=== PATIENT | female | born 1960 | race Caucasian/White ===

== ENCOUNTER 2021-05-29 10:46 | Inpatient (IN) ==
[2021-05-29] MEDS ORDERED: MoRPHine SULFATE 4 MG/ML 1 ML CARP\\VIAL IV STA ×3 (14:06→20:53)
[2021-05-29] MEDS ORDERED: SODIUM CHLORIDE 0.9% 500 ML IV STA (14:06)
[2021-05-29] MEDS ORDERED: ONDANSETRON INJ 2 MG/ML 2 ML VIAL IV STA (14:06)
--- NOTE | 2021-05-29 14:11 | Emergency Department Note ---
Impression & Plan Acute pancreatitis, Cholelithiasis, Elevated LFTs ED Provider Note CHIEF COMPLAINT: Abdominal pain, nausea and vomiting HISTORY OF PRESENTING ILLNESS: This is a 61-year-old female who presents to the emergency department by private vehicle with complaint of right-sided abdominal pain that started this morning. Patient states that she has had a lot of nausea and vomiting with the pain and has not been able to keep anything down today. Patient states that she had some upper abdominal pain about 9 days ago, she went to another hospital in [place] and was evaluated for this, she states that they did scans and told her that she had a hiatal hernia. She states that her symptoms completely resolved at that time and she has been feeling fine until this morning when her symptoms came back suddenly. She states the pain is in the right side of her upper abdomen, wraps around to her right shoulder blade area and also radiates down towards her lower abdomen, it is constant, dull ache and occasional sharp pains, and she currently rates the pain 9/10. She has not been able to take anything for pain because of the nausea and vomiting. She denies any history of previous abdominal surgeries or intestinal problems. She does note that they had encouraged her to follow-up with GI and she has an appointment towards the end of the month, she states she called GI today with her symptoms but they were not able to get her in any sooner today and recommended she come to the ER for further evaluation. She denies any chest pain, chest tightness, shortness of breath, palpitations, dizziness or syncope. She does note that she is currently on Eliquis for history of a right lower leg DVT. She denies any diarrhea or constipation and denies any urinary symptoms. REVIEW OF SYSTEMS: A complete 10 point review of systems was reviewed with the patient with pertinent positives and negatives as per history of present illness. All else were negative. PAST MEDICAL HISTORY: History of DVT currently on Eliquis SOCIAL HISTORY: Lives at home, she is a current everyday smoker ALLERGIES: No known allergies PHYSICAL EXAM: CONSTITUTIONAL: Pleasant and cooperative. Nontoxic-appearing and in no acute distress, but appears to feel unwell and to be in some pain, grimacing during exam. Mildly dehydrated. HEENT: Normocephalic, atraumatic. Pharynx normal. Tacky mucous membranes. NECK: Supple, full active range of motion without discomfort. RESPIRATORY: Clear to auscultation bilaterally with no wheezing, crackles, rhonchi or stridor. Equal expansion bilaterally. CARDIOVASCULAR: Regular rate and rhythm with no murmurs, rubs or gallops. Normal peripheral perfusion, 2+ distal pulses in all 4 extremities. No pitting edema. GASTROINTESTINAL: Tender to palpation in the right upper quadrant, right lower quadrant, and right flank, slight guarding throughout. No rebound tenderness. Abdomen is soft and nondistended. No palpable masses or HSM. Bowel sounds present in all quadrants. Right-sided CVA tenderness to percussion, no left- sided CVA tenderness. MUSCULOSKELETAL: Full range of motion of all joints without discomfort. INTEGUMENTARY: No rash or other significant dermatologic conditions noted. NEUROLOGIC: Alert and oriented X 4 with normal affect. Normal strength and sensation in all 4 extremities. Normal speech. Normal gait observed. ED COURSE AND MEDICAL DECISION MAKING: CC: Patient presenting with complaint of abdominal pain, nausea and vomiting DIFFERENTIAL DIAGNOSIS: Includes, but not limited to cholecystitis, cholelithiasis, pancreatitis, appendicitis, ovarian cyst, ovarian torsion, UTI, pyelonephritis, ureteral stone, infections, diverticulitis, small bowel obstruction, aortic pathology, acute coronary syndrome, pulmonary embolism, inflammatory bowel disease, PUD, hernia, volvulus, constipation, as well as other pathologies. INTERPRETATION OF LABS: Leukocytosis, no anemia, normal platelets, no significant electrolyte abnormalities, normal renal function, diffusely elevated liver enzymes and elevated lipase. Troponin undetectable. SARS-CoV-2 PCR negative. EKG: Shows normal sinus rhythm with a rate of 84 bpm, no ST elevation or depression, no ectopy by my interpretation. No previous EKGs available for comparison. MEDICATION RECONCILIATION: I attest that I have personally reviewed the patient's current medication list. INITIAL VITAL SIGNS REVIEW: I reviewed the patient's initial vital signs and interpret them as follows: T: Afebrile; BP: Mildly hypertensive; HR: Within normal limits; RR: Within normal limits; Pulse Ox: Within normal limits on room air. MDM SUMMARY: Patient was evaluated at bedside, history and physical exam performed. Patient is alert and oriented, in no acute distress, but does appear to be in some pain on my exam. She is nauseated but is not actively vomiting. She does appear to be mildly dehydrated clinically. Abdomen is quite tender to palpation throughout the right side, most tender in the right upper quadrant, no acute abdomen. She is afebrile and nontoxic-appearing. Cardiac monitoring: An order was placed for continuous cardiac monitoring. The monitor shows a rate of 80 bpm with normal sinus rhythm. EKG was reviewed and showed normal sinus rhythm with no acute ischemic changes. Orders were placed for labs, UA, IV fluid bolus for hydration, IV morphine for pain, IV Zofran for nausea, CT imaging of the abdomen/pelvis with IV contrast to evaluate for right abdominal and flank pain. Patient notes a recent DVT, a CTA of the chest was added as well as a precaution. Patient's labs were reviewed, notable for leukocytosis as well as significantly elevated liver enzymes and lipase. Given the patient's history and exam with these lab findings, I am most concerned for gallbladder disease/pancreatitis. CT imaging was canceled and a right upper quadrant ultrasound was ordered at this time. Patient discussed with Dr. Reid, who agrees with my assessment, plan, and disposition. Right upper quadrant ultrasound noted cholelithiasis without sonographic evidence of acute cholecystitis. She was given additional IV fluid bolus and additional morphine for continued pain management. I spoke on the phone with Mauri Maher PA-C with General surgery, he recommended the patient be evaluated by GI and most likely admitted to medicine. I spoke on the phone with [facility] and the [facility] hospitalist, they have evaluated the patient for admission and GI plans to take the patient for ERCP tomorrow. IV Zosyn was ordered at the recommendation of GI given the patient's leukocytosis. Patient reassessed multiple times throughout ED stay, she has remained hemodynamically stable and afebrile and notes that her pain and nausea are improved after the morphine and Zofran. The patient was updated on all results and plan for admission, all questions were answered to the best of my ability and the patient was agreeable to this plan. The patient was stable at time of admission. The chart was completed utilizing [employer] Speech voice recognition software. Grammatical errors, random word insertions, pronoun errors, and incomplete sentences are an occasional consequence of this system due to software limitations, ambient noise, and hardware issues. Any formal questions or concerns about the content, text, or information contained within the body of this dictation should be directly addressed to the nurse practitioner for clarification. Past Med/Surg History Social History Smoking Status: Current every day smoker Tobacco Type: Cigarettes Cigarettes Per Day: 15; Hx Alcohol Use: No Hx Substance Use: No Preferred Language: Togolese Communication Ability: Effective Pit Recorder Required: No Beliefs That Will Affect Care: None Current Living Situation: Spouse Feels Safe at Home: Yes Assistive Devices: Glasses Allergies Allergies Allergy/AdvReac Type Severity Reaction Status Date / Time No Known Allergies Allergy Unverified 05/29/21 16:33 Home Meds Home Medications Medication Instructions Recorded Confirmed apixaban 5 mg tablet (Eliquis) 5 mg PO BID 05/29/21 05/29/21 ascorbic acid (vitamin C) 500 mg 0 mg PO QAM 05/29/21 05/29/21 tablet (Vitamin C) cholecalciferol (vitamin D3) 25 0 mcg PO QAM 05/29/21 05/29/21 mcg (1,000 unit) tablet (Vitamin D3) zinc 50 mg tablet 0 mg PO QAM 05/29/21 05/29/21 Results & Data (ED) Vital Signs Vital Signs - 24 hr 05/29/21 11:03 05/29/21 14:20 05/29/21 14:24 Temperature 36.6 C Temperature Source Temporal Artery Scan Pulse Rate 78 Pulse Rate [Left Finger] 92 H Pulse Rhythm Regular Pulse Rhythm [Left Finger] Regular Pulse Strength Normal Pulse Strength [Left Finger] Normal Respiratory Rate 20 20 Respiratory Effort / Characteristics Non-Labored Spontaneous Non-Labored Spontaneous Respiratory Depth Normal Normal Respiratory Pattern Regular Blood Pressure 143/78 H Blood Pressure [Left Arm] 145/87 H Blood Pressure Mean 99 Blood Pressure Mean [Left Arm] 106 Blood Pressure Position [Left Arm] Sitting Pulse Oximetry 100 99 99 Oxygen Delivery Method Room Air Room Air Room Air Oxygen Flow Rate Sepsis Recent Fever Within 48 Hours No Sepsis New/Unexplained Change in Mental Status No Sepsis Action Taken by Nursing No Action Required 05/29/21 16:20 Temperature Temperature Source Pulse Rate Pulse Rate [Left Finger] 80 Pulse Rhythm Pulse Rhythm [Left Finger] Regular Pulse Strength Pulse Strength [Left Finger] Normal Respiratory Rate 18 Respiratory Effort / Characteristics Non-Labored Spontaneous Respiratory Depth Normal Respiratory Pattern Regular Blood Pressure Blood Pressure [Left Arm] 104/76 Blood Pressure Mean Blood Pressure Mean [Left Arm] 85 Blood Pressure Position [Left Arm] Pulse Oximetry 99 Oxygen Delivery Method Nasal Cannula Oxygen Flow Rate 2 Sepsis Recent Fever Within 48 Hours Sepsis New/Unexplained Change in Mental Status Sepsis Action Taken by Nursing Laboratory Data Result diagrams: 05/29/21 14:00 05/29/21 14:00 Lab Results 05/29/21 05/29/21 05/29/21 Range/Units 14:00 14:00 14:00 WBC 17.55 H (4.8-10.8) K/uL RBC 5.05 (4.2-5.4) M/uL Hgb 15.6 (12.0-16.0) g/dL Hct 45.7 (37-47) % MCV 90.5 (80-100) fL MCH 30.9 (25-34) pg MCHC 34.1 (32-36) g/dL RDW Std Deviation 45.8 (36.4-46.3) fL RDW Coeff of Phillip 14.0 (11.5-14.5) % Plt Count 338 (130-400) K/uL MPV 10.4 (7.4-10.4) fL Immature Gran % (Auto) 0.2 % Neut % (Auto) 91.2 % Lymph % (Auto) 8.5 % Steele % (Auto) 0.0 % Eos % (Auto) 0.0 % Baso % (Auto) 0.1 % Neut # (Auto) 16.02 H (1.4-6.5) K/uL Lymph # (Auto) 1.49 (1.2-3.4) K/uL Steele # (Auto) 0.00 L (0.11-0.59) K/uL Eos # (Auto) 0.00 (0-0.5) K/uL Baso # (Auto) 0.01 (0-0.2) K/uL Immature Gran # (Auto) 0.03 H (0.00-0.02) K/uL Sodium 138 (136-145) mmol/L Potassium 3.6 (3.5-5.1) mmol/L Chloride 106 (98-107) mmol/L Carbon Dioxide 23 (21-32) mmol/L Anion Gap 9.0 (3-11) BUN 12 (7-18) mg/dl Creatinine 0.87 (0.6-1.2) mg/dl Est Cr Clr Drug Dosing Not Reportable Est GFR ( Amer) 82.8 ml/min Est GFR (Non-Af Amer) 71.4 ml/min BUN/Creatinine Ratio 13.6 (10-20) Glucose 197 H (70-99) mg/dl Calcium 9.5 (8.5-10.1) mg/dl Total Bilirubin 1.9 H (0.2-1) mg/dl AST 307 H (15-37) U/L ALT 314 H (12-78) U/L Alkaline Phosphatase 283 H (45-117) U/L Troponin I < 0.015 (0-0.045) ng/ml Total Protein 7.9 (6.4-8.2) gm/dl Albumin 3.9 (3.4-5.0) gm/dl Globulin 4.0 (2.5-4.0) gm/dl Albumin/Globulin Ratio 1.0 (0.9-2) Lipase 5795 H (73-393) U/L COVID-19 Eval Order SARS-CoV-2 (PCR) (Negative) 05/29/21 05/29/21 Range/Units 16:18 16:18 WBC (4.8-10.8) K/uL RBC (4.2-5.4) M/uL Hgb (12.0-16.0) g/dL Hct (37-47) % MCV (80-100) fL MCH (25-34) pg MCHC (32-36) g/dL RDW Std Deviation (36.4-46.3) fL RDW Coeff of Phillip (11.5-14.5) % Plt Count (130-400) K/uL MPV (7.4-10.4) fL Immature Gran % (Auto) % Neut % (Auto) % Lymph % (Auto) % Steele % (Auto) % Eos % (Auto) % Baso % (Auto) % Neut # (Auto) (1.4-6.5) K/uL Lymph # (Auto) (1.2-3.4) K/uL Steele # (Auto) (0.11-0.59) K/uL Eos # (Auto) (0-0.5) K/uL Baso # (Auto) (0-0.2) K/uL Immature Gran # (Auto) (0.00-0.02) K/uL Sodium (136-145) mmol/L Potassium (3.5-5.1) mmol/L Chloride (98-107) mmol/L Carbon Dioxide (21-32) mmol/L Anion Gap (3-11) BUN (7-18) mg/dl Creatinine (0.6-1.2) mg/dl Est Cr Clr Drug Dosing Est GFR ( Amer) ml/min Est GFR (Non-Af Amer) ml/min BUN/Creatinine Ratio (10-20) Glucose (70-99) mg/dl Calcium (8.5-10.1) mg/dl Total Bilirubin (0.2-1) mg/dl AST (15-37) U/L ALT (12-78) U/L Alkaline Phosphatase (45-117) U/L Troponin I (0-0.045) ng/ml Total Protein (6.4-8.2) gm/dl Albumin (3.4-5.0) gm/dl Globulin (2.5-4.0) gm/dl Albumin/Globulin Ratio (0.9-2) Lipase (73-393) U/L COVID-19 Eval Order Covid19 at [facility] SARS-CoV-2 (PCR) NEGATIVE (Negative) Administered Medications Lactated Ringer's (Lr) 1,000 mls @ 150 mls/hr IV .Q6H40M JOSE Stop: 06/28/21 20:23 Last Admin: 05/29/21 21:06 Dose: 150 mls/hr Documented by: [id number] Ondansetron HCl (Ondansetron Inj 2 Mg/Ml 2 Ml Vial) 4 mg IV Q6H PRN PRN Reason: Nausea And Vomiting Stop: 06/28/21 20:52 Last Admin: 05/29/21 21:08 Dose: 4 mg Documented by: [id number] Discontinued Medications Sodium Chloride (Nss) 500 mls @ 999 mls/hr IV .Q31M STA Stop: 05/29/21 14:36 Last Infusion: 05/29/21 15:10 Dose: 0 mls/hr Documented by: [id number] Admin: 05/29/21 14:18 Dose: 999 mls/hr Documented by: [id number] Sodium Chloride (Nss 1000ml) 1,000 mls @ 999 mls/hr IV .Q1H1M ONE Stop: 05/29/21 17:11 Last Infusion: 05/29/21 17:35 Dose: 0 mls/hr Documented by: [id number] Admin: 05/29/21 16:23 Dose: 999 mls/hr Documented by: [id number] Piperacillin Sod/Tazobactam Sod (Zosyn) 4.5 gm in 120 mls @ 240 mls/hr IV NOW ONE Stop: 05/29/21 17:13 Last Infusion: 05/29/21 17:35 Dose: 0 mls/hr Documented by: [id number] Admin: 05/29/21 16:48 Dose: 240 mls/hr Documented by: [id number] Morphine Sulfate (Morphine Sulfate 4 Mg/Ml 1 Ml Carp\Vial) 4 mg IV NOW STA Stop: 05/29/21 14:07 Last Admin: 05/29/21 14:18 Dose: 4 mg Documented by: [id number] Morphine Sulfate (Morphine Sulfate 4 Mg/Ml 1 Ml Carp\Vial) 4 mg IV NOW STA Stop: 05/29/21 16:22 Last Admin: 05/29/21 16:48 Dose: 4 mg Documented by: [id number] Morphine Sulfate (Morphine Sulfate 4 Mg/Ml 1 Ml Carp\Vial) 4 mg IV NOW STA Stop: 05/29/21 20:54 Last Admin: 05/29/21 21:09 Dose: 4 mg Documented by: [id number] Ondansetron HCl (Ondansetron Inj 2 Mg/Ml 2 Ml Vial) 4 mg IV NOW STA Stop: 05/29/21 14:07 Last Admin: 05/29/21 14:18 Dose: 4 mg Documented by: [id number] Imaging Data Radiologist's Impression: Gallbladder Ultrasound 05/29/21 14:45 US gallbladder HISTORY: 61 years-old Female RUQ pain, elevated liver enzymes acute right upper quadrant abdominal pain COMPARISON: None TECHNIQUE: Multiple real-time sonographic images of the abdominal right upper quadrant were obtained assessing grayscale appearance and color flow FINDINGS: The visualized pancreas is unremarkable. Increased echogenicity of the liver suggestive of hepatic steatosis with fatty sparing near the dylan hepatis. No hepatic mass or marginal nodularity. Stone filled gallbladder with posterior acoustic shadowing. No gallbladder wall thickening or pericholecystic fluid identified. The sonographic Alvarado sign was reported as negative. The imaged right kidney is unremarkable without hydronephrosis. The common bile duct measures the upper limits of normal at 6 mm. IMPRESSION: 1. Cholelithiasis without sonographic evidence of acute cholecystitis. 2. Hepatic steatosis. ACT 112: Negative or not required by law. The above report was generated using voice recognition software. It may contain grammatical, syntax or spelling errors. Electronically signed by: Oswald Coppola M.D. 05/29/2021 3:31 PM Chest X-Ray 05/29/21 16:28 XR chest 1V portable HISTORY: sepsis COMPARISON: None. FINDINGS: No pneumothorax. No pleural effusions. There is mild elevation of the right hemidiaphragm. Right basilar linear densities favor subsegmental atelectasis. Otherwise, no focal lung consolidations to suggest pneumonia. No evidence for pulmonary edema. The heart is normal in size. Postoperative changes noted within the cervical spine. IMPRESSION: No acute process. ACT 112: Negative or not required by law. Electronically signed by: Alejo Gilmore M.D. 05/29/2021 5:05 PM Discharge Plan Visit Data Chief Complaint: GI Assessment Stated Complaint: ANAL HERNIA, THROWING UP, REFERRED BY DOCTOR ED Provider: Kodak Reid ED Midlevel Provider: Deana Jasmine Discharge Problem: Acute pancreatitis, Cholelithiasis, Elevated LFTs Patient Disposition: Admitted As Inpatient Condition: Good Discharge Instructions Interventions: ED Discharge Assessment Last Done: 05/29/21 19:58 Discharge Problem: Acute pancreatitis Qualifiers: Pancreatitis type: biliary Acute pancreatitis complication: unspecified Qualified Code(s): K85.10 - Biliary acute pancreatitis without necrosis or infection Cholelithiasis Qualifiers: Cholelithiasis location: gallbladder Cholecystitis presence: without cholecystitis Biliary obstruction: with biliary obstruction Qualified Code(s): K80.21 - Calculus of gallbladder without cholecystitis with obstruction
[2021-05-29 14:12] LABS: Basophils # (auto) 0.01 K/uL (0-0.2); Basophils % (auto) 0.1 %; Hematocrit (blood only) 45.7 % (37-47); Hemoglobin 15.6 g/dL (12.0-16.0); Immature Granulocytes # (auto) 0.03 K/uL (0.00-0.02); Immature Granulocytes % (auto) 0.2 %; Lymphocytes # (auto) 1.49 K/uL (1.2-3.4); Lymphocytes % (auto) 8.5 %; Mean Corpuscular Hemoglobin 30.9 pg (25-34); Mean Corpuscular Hgb Conc 34.1 g/dL (32-36); Mean Corpuscular Volume 90.5 fL (80-100); Mean Platelet Volume 10.4 fL (7.4-10.4); Neutrophils # (auto) 16.02 K/uL (1.4-6.5); Neutrophils % (auto) 91.2 %; Platelet Count 338 K/uL (130-400); RDW Standard Deviation 45.8 fL (36.4-46.3); Red Blood Count 5.05 M/uL (4.2-5.4); White Blood Count 17.55 K/uL (4.8-10.8)
[2021-05-29 14:29] LABS: Alanine Aminotransferase 314 U/L (12-78); Albumin Level 3.9 gm/dl (3.4-5.0); Aspartate Aminotransferase 307 U/L (15-37); BUN Creatinine Ratio 13.6 (10-20); Blood Urea Nitrogen 12 mg/dl (7-18); Calcium 9.5 mg/dl (8.5-10.1); Carbon Dioxide 23 mmol/L (21-32); Chloride 106 mmol/L (98-107); Est GFR (African American) 82.8 ml/min; Est GFR (Non-African American) 71.4 ml/min; Glucose 197 mg/dl (70-99); Potassium 3.6 mmol/L (3.5-5.1); Sodium 138 mmol/L (136-145)
[2021-05-29 14:32] LABS: Alkaline Phosphatase 283 U/L (45-117); Bilirubin,Total 1.9 mg/dl (0.2-1); Total Protein 7.9 gm/dl (6.4-8.2)
[2021-05-29 14:47] LABS: Lipase 5795 U/L (73-393)
--- NOTE | 2021-05-29 15:32 | Ultrasound Report ---
US gallbladder HISTORY: 61 years-old Female RUQ pain, elevated liver enzymes acute right upper quadrant abdominal p ain COMPARISON: None TECHNIQUE: Multiple real-time sonographic images of the abdominal right upper quadrant were obtained assessing grayscale appearance and color flow FINDINGS: The visualized pancreas is unremarkable. Increased echogenicity of the liver suggestive of hepatic st eatosis with fatty sparing near the dylan hepatis. No hepatic mass or marginal nodularity. Stone fill ed gallbladder with posterior acoustic shadowing. No gallbladder wall thickening or pericholecystic f luid identified. The sonographic Alvarado sign was reported as negative. The imaged right kidney is unr emarkable without hydronephrosis. The common bile duct measures the upper limits of normal at 6 mm. IMPRESSION: 1. Cholelithiasis without sonographic evidence of acute cholecystitis. 2. Hepatic steatosis. ACT 112: Negative or not required by law. The above report was generated using voice recognition software. It may contain grammatical, syntax o r spelling errors. Electronically signed by: Oswald Coppola M.D. 05/29/2021 3:31 PM
[2021-05-29] MEDS ORDERED: SODIUM CHLORIDE 0.9% 1000ML 1,000 ML IV ONE (16:11)
--- NOTE | 2021-05-29 16:13 | Surgery Consultation ---
Date of Consultation May 29, 2021 Assessment & Plan (1) Cholelithiasis: Likely biliary pancreatitis. Await GI decision for MRCP/ERCP. Hold Eliquis, cont IV abx. Eventual lap mariah once pancreatitis resolves and Eliquis held 2-3 days. Supervising Physician Co-Signing Physician Notes pnt S&E, agree with above. 61 y/o female with choledocholithiasis and gallstone pancreatitis, on elliquis. afvss, nad, aaox3, abd with tenderness to palpation in epigastrium and ruq. jaundiced. wbc elevated, lfts, tbili, and lipase elevated. admit to medicine, npo, ivf's, abx, hold elliquis gi consult for possible ercp plan for laparoscopic cholecystectomy this hospital stay, possibly tomorrow in conjunction with GI ERCP risks discussed to include bleeding, infection, retained stone, bile leak, damage to surrounding structures, need for future or more extensive surgery, open surgery, and risks of anesthesia. History of Present Illness History of Present Illness 61 y/o female with second episode of epigastric/RUQ pain, N/V over the 9 days. Was seen at another facility in [place] and told she had a hiatal hernia. Next day she she felt better, had symptoms again two days later but not as severe. Then felt well for several days until this morning when she increasing pain, N/V, and right shoulder pain. She had an upcoming appt with GI on the and they referred her to the ER for further eval today. LE DVT 5 months ago, due to finish Eliquis in early Jun. Allergies Allergy/AdvReac Type Severity Reaction Status Date / Time No Known Allergies Allergy Unverified 05/29/21 16:33 Home Medications Medication Instructions Recorded Confirmed Type apixaban 5 mg tablet (Eliquis) 5 mg PO BID 05/29/21 05/29/21 History ascorbic acid (vitamin C) 500 mg 0 mg PO QAM 05/29/21 05/29/21 History tablet (Vitamin C) cholecalciferol (vitamin D3) 25 0 mcg PO QAM 05/29/21 05/29/21 History mcg (1,000 unit) tablet (Vitamin D3) zinc 50 mg tablet 0 mg PO QAM 05/29/21 05/29/21 History Patient History Social History Smoking Status: Current every day smoker Tobacco Type: Cigarettes Feels Safe at Home: Yes Review of Systems Constitutional: no fever, no chills and no anorexia Gastrointestinal: + abdominal pain, + nausea and + vomiting; no constipation and no diarrhea/loose stools Physical Exam Constitutional: WD/WN, vitals as above Respiratory: normal respiratory effort, lungs clear to auscultation Cardiovascular: RRR, no murmur, no edema Gastrointestinal (Abdomen): Inspection/Auscultation: abdomen normal to inspection Percussion/Palpation: + abdomen tender (epigastric) and abdomen soft Skin: no rashes, warm and dry Results & Data ([facility]) Vital Signs (Past 12 Hours) Vital Signs Temp Pulse Pulse Resp BP BP Pulse Ox 05/29/21 14:24 99 05/29/21 14:20 92 H 20 145/87 H 99 05/29/21 11:03 36.6 C 78 20 143/78 H 100 PG Care Time/CCT Total # of Minutes Spent Total Time Spent with Patient: Total time spent is greater than 50% in coordination of care (as documented) at patient's floor/unit and/or counseling patient: Coding Level of Care Code 27321 Inpt Consult Level 3 Diagnoses Cholelithiasis K80.20
--- NOTE | 2021-05-29 16:23 | Electrocardiogram Report ---
Test Reason : Blood Pressure : / mmHG Vent. Rate : 084 BPM Atrial Rate : 084 BPM P-R Int : 156 ms QRS Dur : 090 ms QT Int : 350 ms P-R-T Axes : 064 019 077 degrees QTc Int : 413 ms Normal sinus rhythm Nonspecific T wave abnormality Abnormal ECG No previous ECGs available Confirmed by William Cleaning ([id number]) on 05/29/2021 4:23:05 PM Referred By: REFERRED SELF Confirmed By:William Cleaning
[2021-05-29] MEDS ORDERED: PIPERACILL/TAZOBAC CONSULT ACTIVE PRN (16:44)
[2021-05-29] MEDS ORDERED: PIPERACILLIN/TAZOBACTAM 4.5 GM/120 ML BAG IV ONE (16:44)
--- NOTE | 2021-05-29 16:51 | Gastrointestinal Consultation ---
Date of Consultation May 29, 2021 Assessment & Plan (1) Cholelithiasis: 61 year old female admitted w/ pain, nausea, vomiting ABD US w/ gallstones, no biliary dilation. WBC 17, TB 1.9 AST 307, ALT 314, ALKP 283 Hold Eliquis NPO after midnight EUS/ERCP in the AM IV ABX Antiemetics PRN Analgesia PRN Thank you for allowing us to participate in the care of this patient. Please call with any acute changes, questions or concerns. Please see addendum below with additional recommendation from my supervising physician. Supervising Physician Co-Signing Physician Notes I performed a history and physical examination of the patient today, including specifically on physical exam - soft abdomen. I have discussed the patient's management with the advanced practitioner. Please refer to the nurse practitioner's note for the documented findings and plan of care. 61 years old female patient presented with abdominal pain, nausea and vomiting, found to have gallstones pancreatitis, reports chills and has mild leukocytosis, no biliary dilation on US. She takes Eliquis, last dose was last night. Recommend: EUS/ERCP tomorrow morning, combination with Lap mariah. IV ABx for now. IV Hydration. Hold Eliquis. History of Present Illness Reason for Consultation: gallstone panc Requesting Physician: Melodie Attending Physician: Melodie History of Present Illness 61 year old female with history of DVT in December, last dose last evening as vomited dose this AM, COVID-19 infection in March admitted w/ pain nausea, vomiting x 1 week. Went to ED in [place], was told she had hiatal hernia. [place] well for 1-2 days then symptoms returned and persisted. Now w/ severe abd pain, nausea, vomiting. ABD US: Cholelithiasis without sonographic evidence of acute cholecystitis.Hepatic steatosis. Allergies Allergy/AdvReac Type Severity Reaction Status Date / Time No Known Allergies Allergy Unverified 05/29/21 16:33 Home Medications Medication Instructions Recorded Confirmed Type apixaban 5 mg tablet (Eliquis) 5 mg PO BID 05/29/21 05/29/21 History ascorbic acid (vitamin C) 500 mg 0 mg PO QAM 05/29/21 05/29/21 History tablet (Vitamin C) cholecalciferol (vitamin D3) 25 0 mcg PO QAM 05/29/21 05/29/21 History mcg (1,000 unit) tablet (Vitamin D3) zinc 50 mg tablet 0 mg PO QAM 05/29/21 05/29/21 History Patient History Social History Smoking Status: Current every day smoker Tobacco Type: Cigarettes Feels Safe at Home: Yes Review of Systems Review of Systems: All systems reviewed & are unremarkable except as noted in HPI & below Physical Exam Constitutional: WD/WN, vitals as above Respiratory: normal respiratory effort, lungs clear to auscultation Cardiovascular: Rate/Rhythm: regular rate and regular rhythm Gastrointestinal (Abdomen): Inspection/Auscultation: normal bowel sounds Percussion/Palpation: + abdomen tender and abdomen soft; no guarding, abdomen not rigid, no abdominal mass and no ascites Skin: no rashes, warm and dry Results & Data ([facility]) Vital Signs (Past 12 Hours) Vital Signs Temp Pulse Pulse Resp BP BP Pulse Ox 05/29/21 14:24 99 05/29/21 14:20 92 H 20 145/87 H 99 05/29/21 11:03 36.6 C 78 20 143/78 H 100 Laboratory Results 05/29/21 05/29/21 05/29/21 Range/Units 16:18 16:18 14:00 WBC (4.8-10.8) K/uL RBC (4.2-5.4) M/uL Hgb (12.0-16.0) g/dL Hct (37-47) % MCV (80-100) fL MCH (25-34) pg MCHC (32-36) g/dL RDW Std Deviation (36.4-46.3) fL RDW Coeff of Phillip (11.5-14.5) % Plt Count (130-400) K/uL MPV (7.4-10.4) fL Immature Gran % (Auto) % Neut % (Auto) % Lymph % (Auto) % [place] % (Auto) % Eos % (Auto) % Baso % (Auto) % Neut # (Auto) (1.4-6.5) K/uL Lymph # (Auto) (1.2-3.4) K/uL [place] # (Auto) (0.11-0.59) K/uL Eos # (Auto) (0-0.5) K/uL Baso # (Auto) (0-0.2) K/uL Immature Gran # (Auto) (0.00-0.02) K/uL Sodium (136-145) mmol/L Potassium (3.5-5.1) mmol/L Chloride (98-107) mmol/L Carbon Dioxide (21-32) mmol/L Anion Gap (3-11) BUN (7-18) mg/dl Creatinine (0.6-1.2) mg/dl Est Cr Clr Drug Dosing Est GFR ( Amer) ml/min Est GFR (Non-Af Amer) ml/min BUN/Creatinine Ratio (10-20) Glucose (70-99) mg/dl Calcium (8.5-10.1) mg/dl Total Bilirubin (0.2-1) mg/dl AST (15-37) U/L ALT (12-78) U/L Alkaline Phosphatase (45-117) U/L Troponin I < 0.015 (0-0.045) ng/ml Total Protein (6.4-8.2) gm/dl Albumin (3.4-5.0) gm/dl Globulin (2.5-4.0) gm/dl Albumin/Globulin Ratio (0.9-2) Lipase (73-393) U/L COVID-19 Eval Order Covid19 at [facility] SARS-CoV-2 (PCR) Pending 05/29/21 05/29/21 Range/Units 14:00 14:00 WBC 17.55 H (4.8-10.8) K/uL RBC 5.05 (4.2-5.4) M/uL Hgb 15.6 (12.0-16.0) g/dL Hct 45.7 (37-47) % MCV 90.5 (80-100) fL MCH 30.9 (25-34) pg MCHC 34.1 (32-36) g/dL RDW Std Deviation 45.8 (36.4-46.3) fL RDW Coeff of Phillip 14.0 (11.5-14.5) % Plt Count 338 (130-400) K/uL MPV 10.4 (7.4-10.4) fL Immature Gran % (Auto) 0.2 % Neut % (Auto) 91.2 % Lymph % (Auto) 8.5 % [place] % (Auto) 0.0 % Eos % (Auto) 0.0 % Baso % (Auto) 0.1 % Neut # (Auto) 16.02 H (1.4-6.5) K/uL Lymph # (Auto) 1.49 (1.2-3.4) K/uL [place] # (Auto) 0.00 L (0.11-0.59) K/uL Eos # (Auto) 0.00 (0-0.5) K/uL Baso # (Auto) 0.01 (0-0.2) K/uL Immature Gran # (Auto) 0.03 H (0.00-0.02) K/uL Sodium 138 (136-145) mmol/L Potassium 3.6 (3.5-5.1) mmol/L Chloride 106 (98-107) mmol/L Carbon Dioxide 23 (21-32) mmol/L Anion Gap 9.0 (3-11) BUN 12 (7-18) mg/dl Creatinine 0.87 (0.6-1.2) mg/dl Est Cr Clr Drug Dosing Not Reportable Est GFR ( Amer) 82.8 ml/min Est GFR (Non-Af Amer) 71.4 ml/min BUN/Creatinine Ratio 13.6 (10-20) Glucose 197 H (70-99) mg/dl Calcium 9.5 (8.5-10.1) mg/dl Total Bilirubin 1.9 H (0.2-1) mg/dl AST 307 H (15-37) U/L ALT 314 H (12-78) U/L Alkaline Phosphatase 283 H (45-117) U/L Troponin I (0-0.045) ng/ml Total Protein 7.9 (6.4-8.2) gm/dl Albumin 3.9 (3.4-5.0) gm/dl Globulin 4.0 (2.5-4.0) gm/dl Albumin/Globulin Ratio 1.0 (0.9-2) Lipase 5795 H (73-393) U/L COVID-19 Eval Order SARS-CoV-2 (PCR)
--- NOTE | 2021-05-29 17:06 | XRay Report ---
XR chest 1V portable HISTORY: sepsis COMPARISON: None. FINDINGS: No pneumothorax. No pleural effusions. There is mild elevation of the right hemidiaphragm. Right basilar linear densities favor subsegmental atelectasis. Otherwise, no focal lung consolidation s to suggest pneumonia. No evidence for pulmonary edema. The heart is normal in size. Postoperative c hanges noted within the cervical spine. IMPRESSION: No acute process. ACT 112: Negative or not required by law. Electronically signed by: Alejo Gilmore M.D. 05/29/2021 5:05 PM
--- NOTE | 2021-05-29 17:20 | History & Physical Report ---
Date of Service May 29, 2021 Assessment & Plan (1) Acute pancreatitis: Plan: NPO. Continue LR @ 150ml/hr Domonique's criteria 2 - severe pancreatitis unlikely, 1% predicted mortality BISAP score 2 Repeat LFTs and lipase with AM labs Consult GI - planning on ERCP tomorrow (2) Elevated LFTs: Plan: ERCP planned as above No CBD dilatation on US (3) Cholelithiasis: Plan: Consult surgery (4) DVT (deep venous thrombosis): Plan: History of this. Ok to hold Eliquis currently but increased risk of PE during hospitalization therefore would restart after ERCP and surgery. Plan: VTE Prophylaxis - SCDs, restart Eliquis after surgery and ERCP as above Diet - NPO Disposition - admit to med/tele given intermediate pancreatitis risk Admission and Anticipated Discharge Date Admission Date: May 29, 2021 History of Present Illness Chief Complaint: Abdominal pain Primary Care Provider: NO PCP Beverly Rodriguez is a 61 year old female who presents to the ER with abdominal p ain. She reports right upper quadrant abdominal pain started 9 days ago. She presented to an ER in [place] but after workup there was diagnosed with a hiatal hernia and symptoms felt to be secondary to this. The following day she felt better but then vomited the day after this. She was then symptom free up until this morning. She had planned on going to the beach today but the same abdominal pain started again but much more severe. Severity at worst 10/10, currently 4/10 after morphine given in the ER. It is in her right upper quadrant, radiating to her right shoulder. No fever but having chills. Associated nausea and vomiting. No diarrhea or constipation. No melena or bright red blood in stool. She is on Eliquis for a DVT diagnosed with December (planned for 4-6 months of treatment). She last took Eliquis this morning but vomited after taking this therefore unknown if she absorbed any. In the ER lipase and LFTs are elevated. US RUQ showed cholelithiasis without sonographic evidence of acute cholecystitis and no CBD dilatation. GI and Surgery were contacted and recommended starting IV Zosyn and ERCP planned for tomorrow. She was referred to medicine for admission and ongoing management of pancreatitis. Allergies Allergy/AdvReac Type Severity Reaction Status Date / Time No Known Allergies Allergy Unverified 05/29/21 16:33 Home Medications Medication Instructions Recorded Confirmed Type apixaban 5 mg tablet (Eliquis) 5 mg PO BID 05/29/21 05/29/21 History ascorbic acid (vitamin C) 500 mg 0 mg PO QAM 05/29/21 05/29/21 History tablet (Vitamin C) cholecalciferol (vitamin D3) 25 0 mcg PO QAM 05/29/21 05/29/21 History mcg (1,000 unit) tablet (Vitamin D3) zinc 50 mg tablet 0 mg PO QAM 05/29/21 05/29/21 History Past Med/Surg History Medical History DVT (deep venous thrombosis) Social History Smoking Status: Current every day smoker Tobacco Type: Cigarettes Cigarettes Per Day: 15; Hx Alcohol Use: No Hx Substance Use: No Preferred Language: Uzbek Communication Ability: Effective Diving Coach Required: No Beliefs That Will Affect Care: None Current Living Situation: Spouse Feels Safe at Home: Yes Assistive Devices: Glasses Review of Systems Review of Systems: All systems reviewed & are unremarkable except as noted in HPI & below Physical Exam Constitutional: WD/WN, vitals as above Eyes: PERRL, conjunctivae normal, anicteric sclerae ENMT: external ear and nose normal, oropharynx normal Respiratory: normal respiratory effort, lungs clear to auscultation Cardiovascular: RRR, no murmur, no edema Gastrointestinal (Abdomen): Inspection/Auscultation: abdomen normal to inspection and + hypoactive bowel sounds; abdomen not distended Percussion/Palpation: + abdomen tender (RUQ) and abdomen soft; no guarding and abdomen not rigid Musculoskeletal: no cyanosis or clubbing, extremities motor strength 5/5 Skin: no rashes, warm and dry Neurologic: moves all extremities and awake; no focal motor deficits and not confused Psychiatric: A+Ox3, euthymic affect Genitourinary: no CVA tenderness Results & Data Results & Data ([facility]) Vital Signs (Past 12 Hours) Vital Signs Temp Pulse Pulse Resp BP BP Pulse Ox 05/29/21 16:20 80 18 104/76 99 05/29/21 14:24 99 05/29/21 14:20 92 H 20 145/87 H 99 05/29/21 11:03 36.6 C 78 20 143/78 H 100 Laboratory Results Abnormal lab results 05/29/21 05/29/21 05/29/21 Range/Units 14:00 14:00 18:36 WBC 17.55 H (4.8-10.8) K/uL Neut # (Auto) 16.02 H (1.4-6.5) K/uL [place] # (Auto) 0.00 L (0.11-0.59) K/uL Immature Gran # (Auto) 0.03 H (0.00-0.02) K/uL Glucose 197 H (70-99) mg/dl Total Bilirubin 1.9 H (0.2-1) mg/dl AST 307 H (15-37) U/L ALT 314 H (12-78) U/L Alkaline Phosphatase 283 H (45-117) U/L Lactate Dehydrogenase 293 H (84-246) U/L Lipase 5795 H (73-393) U/L Diagnostic Findings XR chest 1V portable HISTORY: sepsis COMPARISON: None. FINDINGS: No pneumothorax. No pleural effusions. There is mild elevation of the right hemidiaphragm. Right basilar linear densities favor subsegmental atelectasis. Otherwise, no focal lung consolidations to suggest pneumonia. No evidence for pulmonary edema. The heart is normal in size. Postoperative changes noted within the cervical spine. IMPRESSION: No acute process. US gallbladder HISTORY: 61 years-old Female RUQ pain, elevated liver enzymes acute right upper quadrant abdominal pain COMPARISON: None TECHNIQUE: Multiple real-time sonographic images of the abdominal right upper quadrant were obtained assessing grayscale appearance and color flow FINDINGS: The visualized pancreas is unremarkable. Increased echogenicity of the liver suggestive of hepatic steatosis with fatty sparing near the dylan hepatis. No hepatic mass or marginal nodularity. Stone filled gallbladder with posterior acoustic shadowing. No gallbladder wall thickening or pericholecystic fluid identified. The sonographic Alvarado sign was reported as negative. The imaged right kidney is unremarkable without hydronephrosis. The common bile duct measures the upper limits of normal at 6 mm. IMPRESSION: 1. Cholelithiasis without sonographic evidence of acute cholecystitis. 2. Hepatic steatosis. Medications Administered ER Medications Given: NSS 1.5 L bolus Morphine 4mg IV x2 Ondansetron 4mg IV Zosyn 4.5g IV ECG Indication: SOB/dyspnea Rate (beats per minute): 84 Rhythm: normal sinus Findings: + other (widespread T wave flattening) Comparison ECG Date: no prior available Code Status & VTE Plan Code Status Full VTE Prophylaxis Plan VTE Prophylaxis will be ordered: Yes Reason for no VTE drug order: Contraindicated (pending ERCP and surgery) PG Care Time/CCT Total # of Minutes Spent Total Time Spent with Patient: Total time spent is greater than 50% in coordination of care (as documented) at patient's floor/unit and/or counseling patient: Coding Level of Care Code 15114 Initial Inpt Care Lvl 3 Diagnoses Acute pancreatitis K85.90 Elevated LFTs R79.89 Cholelithiasis K80.21 Biliary obstruction: with biliary obstruction Cholecystitis presence: without cholecystitis Cholelithiasis location: gallbladder DVT (deep venous thrombosis) I82.409 (1) Cholelithiasis Biliary obstruction: with biliary obstruction Cholecystitis presence: without cholecystitis Cholelithiasis location: gallbladder Qualified Code(s): K80.21 - Calculus of gallbladder without cholecystitis with obstruction
[2021-05-29] MEDS: LACTATED RINGER'S 1,000 ML IV SCH (21:06)
[2021-05-29] MEDS: ONDANSETRON INJ 2 MG/ML 2 ML VIAL IV PRN (21:08)
[2021-05-29] MEDS: PIPERACILLIN/TAZOBACTAM 3.375 GM in DEXTROSE 5% 100 ML IV SCH (22:23)
[2021-05-29] MEDS ORDERED: ACETAMINOPHEN 1,000 MG/100 ML VIAL IV PRN (22:36)
[2021-05-30] MEDS: HYDROmorphone INJ 0.5 MG/0.5 ML SYR IV PRN (01:08)
[2021-05-30] MEDS: LACTATED RINGER'S 1,000 ML IV SCH ×3 (03:59→16:12)
[2021-05-30] MEDS: PIPERACILLIN/TAZOBACTAM 3.375 GM in DEXTROSE 5% 100 ML IV SCH ×3 (05:39→22:14)
[2021-05-30 06:00] LABS: Appearance Urine Clear (Clear); Bacteria Urine Automated Negative (Negative); Bilirubin Urine Negative (Negative); Blood Urine Negative (Negative); Color Urine Dark Yellow; Epithelial Cell Urine Auto >30 /lpf (0-5); Glucose Urine UA Negative (Negative); Ketones Urine Trace (Negative); Leukocyte Esterase Urine Trace (Negative); Nitrite Urine Negative (Negative); Protein Urine Trace (Negative); RBC Urine Automated 0-4 /hpf (0-4); Specific Gravity Urine 1.018 (1.000-1.030); Urobilinogen Urine Negative (Negative)
--- NOTE | 2021-05-30 06:18 | Surgery Progress Note ---
Date of Service May 30, 2021 Assessment & Plan (1) Cholelithiasis: Plan: Patient has been admitted by the hospitalist service. We will proceed as follows: Continue analgesics Continue antiemetics Continue n.p.o. status Continue IV fluid for hydration Continue antibiotics in the form of Zosyn Plan is for patient undergo intended procedure consisting of an ERCP followed by cholecystectomy later today Additional recommendations made based on her postoperative course and operative findings Admission and Anticipated Discharge Date Admission Date: May 29, 2021 Supervising Physician Co-Signing Physician Notes Pnt s&e, labs reviewed, agree with above. 61 y/o female admitted for choledocholithiasis and pancreatitis. No changes overnight. afvss, abd soft, ttp in RUQ. tbili and lft's downtrending. plan for laparoscopic cholecystectomy, possible cholangiogram today in OR. ERCP by GI risks reviewed plan of care discussed Subjective Patient is resting comfortably at the bedside. Overnight she denies worsening abdominal pain, fevers, shakes, chills, or nausea vomiting. Physical Exam Gastrointestinal (Abdomen): Abdomen is soft, nondistended. Bowel sounds are present. Minor pain noted with palpation in the right upper quadrant. Results & Data ([facility]) Vital Signs (Past 12 Hours) Vital Signs Temp Pulse Pulse Resp BP Pulse Ox 05/30/21 03:11 37.0 C 94 H 20 135/78 95 05/30/21 00:15 37.2 C 79 20 117/68 96 05/29/21 23:37 79 05/29/21 20:30 87 05/29/21 20:29 36.9 C 85 20 136/82 95 PG Care Time/CCT Total # of Minutes Spent Total Time Spent with Patient: Total time spent is greater than 50% in coordination of care (as documented) at patient's floor/unit and/or counseling patient: Coding Level of Care Code None Diagnoses Cholelithiasis K80.21 Biliary obstruction: with biliary obstruction Cholecystitis presence: without cholecystitis Cholelithiasis location: gallbladder (1) Cholelithiasis Biliary obstruction: with biliary obstruction Cholecystitis presence: without cholecystitis Cholelithiasis location: gallbladder Qualified Code(s): K80.21 - Calculus of gallbladder without cholecystitis with obstruction
[2021-05-30] MEDS ORDERED: FAMOTIDINE/PF 20 MG/2 ML VIAL IV ONE (07:02)
--- NOTE | 2021-05-30 07:08 | Anesthesiology Consultation ---
Date of Service May 30, 2021 Assessment & Plan (1) Encounter for pre-operative examination: Chart Review Chart Review: Acceptable Risk for Surgery and Patient NOT seen in Pre Admission Testing Consults Requested none History Surgery Operation Date: 05/30/21 07:30 Proposed Procedures p Laparoscopic Cholecystectomy - Tyson Stokes DO, FACS s Endoscopic Retrograde Cholangiopancreatogram - MD gini Lopez Endoscopic Ultrasonography Upper - Michael Law MD Height/Weight Height: 5 ft 2 in Weight: 76.7 kg Allergies Allergy/AdvReac Type Severity Reaction Status Date / Time No Known Allergies Allergy Unverified 05/29/21 16:33 Medications Home Medications Medication Instructions Recorded Confirmed Last Taken apixaban 5 mg tablet (Eliquis) 5 mg PO BID 05/29/21 05/29/21 05/29/21 Vomited after ascorbic acid (vitamin C) 500 mg 0 mg PO QAM 05/29/21 05/29/21 05/28/21 tablet (Vitamin C) 1tab unknown dosage cholecalciferol (vitamin D3) 25 0 mcg PO QAM 05/29/21 05/29/21 05/28/21 mcg (1,000 unit) tablet (Vitamin 1tab unknown D3) dosage zinc 50 mg tablet 0 mg PO QAM 05/29/21 05/29/21 05/28/21 1tab unknown dosage Active Medications Generic Name Dose Route Start Last Admin Trade Name Freq PRN Reason Stop Dose Admin Hydromorphone HCl 0.25 mg 05/29/21 22:36 05/30/21 01:08 Hydromorphone Inj 0.5 Mg/0.5 Ml Syr IV 06/12/21 22:35 0.25 mg Q6H PRN Administration Pain Lactated Ringer's 1,000 mls @ 150 mls/hr 05/29/21 20:24 05/30/21 03:59 Lr IV 06/28/21 20:23 150 mls/hr .Q6H40M JOSE Administration Piperacillin Sod/Tazobactam 115 mls @ 28.75 mls/hr 05/29/21 22:00 05/30/21 05:39 Sod 3.375 gm/ Dextrose IV 06/08/21 21:59 28.8 mls/hr Q8H JOSE Administration Protocol Ondansetron HCl 4 mg 05/29/21 20:53 05/29/21 21:08 Ondansetron Inj 2 Mg/Ml 2 Ml Vial IV 06/28/21 20:52 4 mg Q6H PRN Administration Nausea And Vomiting NPO Date Last Intake of Fluids: 05/29/21 Time Last Intake of Fluids: 08:00 Date Last Intake of Solids: 05/29/21 Time Last Intake of Solids: 08:00 Past Medical History Medical History DVT (deep venous thrombosis) Social History Smoking Status: Current every day smoker tobacco type: cigarettes Smoking cigarettes per day: 15 Hx Alcohol Use: No Hx Substance Use: No Physical Exam Vital Signs Last Vital Signs Temp 37.0 C 05/30/21 03:11 Pulse 94 H 05/30/21 03:11 Resp 20 05/30/21 03:11 BP 135/78 05/30/21 03:11 Pulse Ox 95 05/30/21 03:11 Lab Results Anesthesia Preop Results Results Anesthesia Widget: WBC 17.55 K/uL (4.8-10.8) H 05/29/21 Hgb 15.6 g/dL (12.0-16.0) 05/29/21 Hct 45.7 % (37-47) 05/29/21 Plt 338 K/uL (130-400) 05/29/21 Na 138 mmol/L (136-145) 05/29/21 K 3.6 mmol/L (3.5-5.1) 05/29/21 Cl 106 mmol/L (98-107) 05/29/21 CO2 23 mmol/L (21-32) 05/29/21 BUN 12 mg/dl (7-18) 05/29/21 Creat 0.87 mg/dl (0.6-1.2) 05/29/21 Glucose Level 197 mg/dl (70-99) H 05/29/21 Urine Color Dark Yellow 05/30/21 Urine Appearance Clear (Clear) 05/30/21 Urine pH 5.0 (4.5-7.5) 05/30/21 Urine Specific [place] 1.018 (1.000-1.030) 05/30/21 Urine Protein Trace (Negative) H 05/30/21 Urine Glucose (UA) Negative (Negative) 05/30/21 Urine Ketones Trace (Negative) H 05/30/21 Urine Blood Negative (Negative) 05/30/21 Urine Nitrite Negative (Negative) 05/30/21 Urine Bilirubin Negative (Negative) 05/30/21 Urine Urobilinogen Negative (Negative) 05/30/21 Urine Leukocyte Esterase Trace (Negative) H 05/30/21 Urine WBC (Auto) 1-5 /hpf (0-5) 05/30/21 Urine RBC (Auto) 0-4 /hpf (0-4) 05/30/21 Urine Hyaline Casts (Auto) 5-10 /lpf (0-5) H 05/30/21 Urine Epithelial Cells (Auto) >30 /lpf (0-5) H 05/30/21 Urine Bacteria (Auto) Negative (Negative) 05/30/21 COVID-19 PCR NEGATIVE (Negative) 05/29/21 Testing Laboratory Results Urine Color Dark Yellow 05/30/21 05:30 Urine Appearance Clear (Clear) 05/30/21 05:30 Urine pH 5.0 (4.5-7.5) 05/30/21 05:30 Ur Specific [place] 1.018 (1.000-1.030) 05/30/21 05:30 Urine Protein Trace (Negative) H 05/30/21 05:30 Urine Glucose (UA) Negative (Negative) 05/30/21 05:30 Urine Ketones Trace (Negative) H 05/30/21 05:30 Urine Nitrite Negative (Negative) 05/30/21 05:30 Ur Leukocyte Esterase Trace (Negative) H 05/30/21 05:30 Urine WBC (Auto) 1-5 /hpf (0-5) 05/30/21 05:30 Urine RBC (Auto) 0-4 /hpf (0-4) 05/30/21 05:30 U Hyaline Cast (Auto) 5-10 /lpf (0-5) H 05/30/21 05:30 U Epithel Cells (Auto) >30 /lpf (0-5) H 05/30/21 05:30 Urine Bacteria (Auto) Negative (Negative) 05/30/21 05:30 Electrocardiogram Date: 05/29/21 Normal sinus rhythm Nonspecific T wave abnormality Abnormal ECG No previous ECGs available
[2021-05-30] MEDS ORDERED: MIDAZOLAM HCL 1 MG/ML 2ML VIAL ONE (07:10)
[2021-05-30] MEDS ORDERED: fentaNYL citrate 100 MCG/2 ML VIAL ONE (07:11)
[2021-05-30] MEDS ORDERED: LIDOCAINE 2% 2 ML VIAL/AMP(20MG/ML) INFIL ONE (07:14)
[2021-05-30] MEDS ORDERED: DEXAMETHASONE SOD INJ 4 MG/ML VIAL ONE (07:14)
[2021-05-30] MEDS ORDERED: ONDANSETRON INJ 2 MG/ML 2 ML VIAL ONE ×2 (07:14→09:55)
[2021-05-30] MEDS ORDERED: PROPOFOL IV EMULSION 10 MG/ML 20 ML VIAL IV ONE (07:14)
[2021-05-30] MEDS ORDERED: ROCURONIUM BROMIDE 10 MG/ML 5 ML VIAL IV ONE ×2 (07:17→09:55)
[2021-05-30 07:21] LABS: Albumin Level 2.5 gm/dl (3.4-5.0); BUN Creatinine Ratio 14.3 (10-20); Calcium 7.5 mg/dl (8.5-10.1); Creatinine Clr Calc Pharmacy 77.7 ml/min; Est GFR (Non-African American) 89.8 ml/min; Potassium 3.9 mmol/L (3.5-5.1)
[2021-05-30] MEDS ORDERED: LARYING-O-JET KIT (LTA) ONE (07:22)
[2021-05-30 07:25] LABS: Basophils # (auto) 0.01 K/uL (0-0.2); Basophils % (auto) 0.1 %; Hematocrit (blood only) 40.9 % (37-47); Hemoglobin 13.5 g/dL (12.0-16.0); Immature Granulocytes # (auto) 0.01 K/uL (0.00-0.02); Immature Granulocytes % (auto) 0.1 %; Lymphocytes # (auto) 0.76 K/uL (1.2-3.4); Lymphocytes % (auto) 6.7 %; Mean Corpuscular Hemoglobin 30.4 pg (25-34); Mean Corpuscular Volume 92.1 fL (80-100); Mean Platelet Volume 10.9 fL (7.4-10.4); Monocytes # (auto) 0.54 K/uL (0.11-0.59); Monocytes % (auto) 4.7 %; Neutrophils # (auto) 10.08 K/uL (1.4-6.5); Neutrophils % (auto) 88.4 %; Platelet Count 248 K/uL (130-400); RDW Coefficient of Variation 14.6 % (11.5-14.5); RDW Standard Deviation 49.7 fL (36.4-46.3); Red Blood Count 4.44 M/uL (4.2-5.4)
[2021-05-30 07:34] LABS: Albumin Globulin Ratio 0.8 (0.9-2); Bilirubin,Total 1.2 mg/dl (0.2-1); Globulin 3.2 gm/dl (2.5-4.0); Total Protein 5.7 gm/dl (6.4-8.2)
--- NOTE | 2021-05-30 07:39 | History & Physical Bridge Note ---
Date of Service May 30, 2021 History & Physical Bridge Note I have examined the patient, reviewed the History & Physical and in the interval since the performance of the History & Physical I have noted the following changes of clinical significance: no changes noted
[2021-05-30] MEDS ORDERED: BUPIVACAINE 0.5 % 5 MG/1 ML MPF 30ML VIAL ONE (08:11)
[2021-05-30] MEDS ORDERED: ATROPINE SULFATE 0.1 MG/ML 10ML SYR IV PRN (08:20)
[2021-05-30] MEDS ORDERED: HYDROmorphone INJ 1 MG/ML SYRINGE IV PRN (08:20)
[2021-05-30] MEDS ORDERED: ONDANSETRON INJ 2 MG/ML 2 ML VIAL IV PRN (08:20)
[2021-05-30] MEDS ORDERED: PROMETHAZINE HCL 12.5 MG in SODIUM CHLORIDE 0.9% 50 ML IV PRN (08:20)
[2021-05-30] MEDS ORDERED: ePHEDrine sulfate 50 MG/ML AMP IV PRN (08:20)
[2021-05-30] MEDS ORDERED: fentaNYL citrate 100 MCG/2 ML VIAL IV PRN (08:20)
[2021-05-30] MEDS ORDERED: METOCLOPRAMIDE HCL INJ 5 MG/ML 2 ML VIAL ONE (08:53)
[2021-05-30] MEDS ORDERED: PHENYLEPHRINE HCL 10 MG/ML VIAL ONE (09:18)
[2021-05-30] MEDS ORDERED: PHENYLEPHRINE 100MCG/ML 5ML SYR ONE (09:18)
[2021-05-30] MEDS ORDERED: NEOSTIGMINE METHYLSULFATE 1 MG/ML 10ML VIAL ONE (09:56)
[2021-05-30] MEDS ORDERED: GLYCOPYRROLATE 0.2 MG/ML VIAL ONE (09:56)
--- NOTE | 2021-05-30 10:13 | Operative Report ---
Post Operative Report Pre & Post Diagnosis Operation Date: 05/30/21 07:30 Pre-Op Diagnosis: ACUTE PANCREATITIS Post-Op Diagnosis: ACUTE PANCREATITIS I identified the patient and participated in the time-out.: Yes Procedure Operation Date: 05/30/21 07:30 Actual Procedures p Laparoscopic Cholecystectomy(Not Applicable) - Tyson Stkoes DO, FACS s Endoscopic Retrograde Cholangiopancreatogram; Endoscopic Ultrasonography Upper - Michael Law MD Surgeon Michael Law MD Street Car Mechanic None Estimated Blood Loss 0 Findings See Below (Inflammation due to pancreatitis, GB stones, no CBD stone. Periampullary edema precluding cannulation.) Specimens None Description of Procedure EUS/ERCP I attest to the content of the Intraoperative Record and any orders documented therein. Any exceptions are noted below.
--- NOTE | 2021-05-30 10:20 | GI REPORT ---
Patient Name: Beverly Rodriguez Procedure Date: 05/30/2021 7:28 AM Date of : 1960 Admit Type: Inpatient Age: 61 Gender: Female Attending MD: Michael Law MD Procedure: Upper GI endoscopy Providers: Michael Law MD Referring MD: Carlo Sewell Md Indications: Abdominal pain Medicines: General Anesthesia Complications: No immediate complications. Estimated Blood Loss: Estimated blood loss: none. Procedure: Pre-Anesthesia Assessment: - Prior to the procedure, a History and Physical was performed, and patient medications, allergies and sensitivities were reviewed. The patient's tolerance of previous anesthesia was reviewed. - The risks and benefits of the procedure and the sedation options and risks were discussed with the patient. All questions were answered and informed consent was obtained. - Patient identification and proposed procedure were verified prior to the procedure by the physician and the nurse. The procedure was verified in the procedure room. - Pre-procedure physical examination revealed no contraindications to sedation. After obtaining informed consent, the endoscope was passed under direct vision. Throughout the procedure, the patient's blood pressure, pulse, and oxygen saturations were monitored continuously. The Endoscope was introduced through the mouth, and advanced to the second part of duodenum. After obtaining informed consent, the endoscope was passed under direct vision. Throughout the procedure, the patient's blood pressure, pulse, and oxygen saturations were monitored continuously. The upper GI endoscopy was accomplished without difficulty. The patient tolerated the procedure well. Findings: A small hiatal hernia was present. The entire examined stomach was normal. The duodenal bulb was normal. Severe inflammation characterized by congestion (edema) was found in the area of the papilla. Impression: - Small hiatal hernia. - Normal stomach. - Duodenitis. Recommendation: - Perform an upper endoscopic ultrasound (UEUS) today. Michael Law MD 05/30/2021 10:19:45 AM This report has been signed electronically. Note Initiated On: 05/30/2021 7:28 AM Number of Addenda: 0 I attest to the content of the Intraoperative Record and orders documented therein, exceptions below {[id number]}
--- NOTE | 2021-05-30 10:32 | GI REPORT ---
Patient Name: Beverly Rodriguez Procedure Date: 05/30/2021 7:29 AM Date of : 1960 Admit Type: Inpatient Age: 61 Gender: Female Attending MD: Michael Law MD Procedure: Upper EUS Providers: Michael Law MD Referring MD: Carlo Sewell Md Indications: Elevated liver enzymes, Suspected choledocholithiasis, Acute pancreatitis Medicines: General Anesthesia Complications: No immediate complications. Estimated Blood Loss: Estimated blood loss: none. Procedure: Pre-Anesthesia Assessment: - Prior to the procedure, a History and Physical was performed, and patient medications, allergies and sensitivities were reviewed. The patient's tolerance of previous anesthesia was reviewed. - The risks and benefits of the procedure and the sedation options and risks were discussed with the patient. All questions were answered and informed consent was obtained. - Patient identification and proposed procedure were verified prior to the procedure by the physician and the nurse. The procedure was verified in the procedure room. - Pre-procedure physical examination revealed no contraindications to sedation. After obtaining informed consent, the endoscope was passed under direct vision. Throughout the procedure, the patient's blood pressure, pulse, and oxygen saturations were monitored continuously. The scope was introduced through the mouth, and advanced to the second part of duodenum. The upper EUS was accomplished without difficulty. The patient tolerated the procedure well. Findings: ENDOSONOGRAPHIC FINDING: : Wall thickening (edema) was visualized endosonographically in the periampullary area due to acute pancreatitis. There was no sign of significant endosonographic abnormality in the common bile duct. The maximum diameter of the duct was 6 mm. No stones were identified. Minimal amount of sludge seen. Thickening of the wall of the duct suggests recent passage of a stone. Many stones were visualized endosonographically in the gallbladder. They were hyperechoic and characterized by shadowing. Inflammatory changes around the area of the gallbladder. There was abnormal echogenicity in the visualized portion of the liver. This area was hyperechoic. Pancreatic parenchymal abnormalities were noted in the entire pancreas. These consisted of diffuse echogenicity and lobularity. There was no sign of significant endosonographic abnormality in the visualized portion of the left adrenal gland. There was no sign of significant endosonographic abnormality involving the celiac trunk. A moderate amount of fluid, visualized as an anechoic feature, was found in the peritoneal cavity. Impression: - Significant inflammatory changes around the gallbladder, bile duct and HOP with edema of the duodenal wall likely due to recent passage of a stone with pancreatitis. - There was no sign of significant pathology in the common bile duct. No stones seen. - Many stones were visualized endosonographically in the gallbladder. - There was abnormal echogenicity in the visualized portion of the liver suggestive of fatty infiltration. - Pancreatic parenchymal abnormalities consisting of diffuse echogenicity and lobularity were noted in the entire pancreas. - Endosonographic images of the left adrenal gland were unremarkable. - The celiac trunk was endosonographically normal. - Ascites was found on endosonographic examination of the peritoneal cavity. Recommendation: - Return patient to [facility] for [facility] care. Michael Law MD 05/30/2021 10:31:43 AM This report has been signed electronically. Note Initiated On: 05/30/2021 7:29 AM Number of Addenda: 0 I attest to the content of the Intraoperative Record and orders documented therein, exceptions below {[id number]}
--- NOTE | 2021-05-30 10:39 | GI REPORT ---
Patient Name: Beverly Rodriguez Procedure Date: 05/30/2021 7:28 AM Date of : 1960 Admit Type: Inpatient Age: 61 Gender: Female Attending MD: Michael Law MD Procedure: ERCP Providers: Michael Law MD Referring MD: Carlo Sewell Md Indications: Elevated liver enzymes, Biliary sludge Medicines: General Anesthesia Complications: No immediate complications. Estimated Blood Loss: Estimated blood loss: none. Procedure: Pre-Anesthesia Assessment: - Prior to the procedure, a History and Physical was performed, and patient medications, allergies and sensitivities were reviewed. The patient's tolerance of previous anesthesia was reviewed. - The risks and benefits of the procedure and the sedation options and risks were discussed with the patient. All questions were answered and informed consent was obtained. - Patient identification and proposed procedure were verified prior to the procedure by the physician and the nurse. The procedure was verified in the procedure room. - Pre-procedure physical examination revealed no contraindications to sedation. After obtaining informed consent, the scope was passed under direct vision. Throughout the procedure, the patient's blood pressure, pulse, and oxygen saturations were monitored continuously. The Scope was introduced through the mouth, and advanced to the duodenum and used to inject contrast into the bile duct. The ERCP was accomplished without difficulty. The patient tolerated the procedure well. Findings: The it risk advisor film was normal. The esophagus was successfully intubated under direct vision. The scope was advanced to a normal major papilla in the descending duodenum without detailed examination of the pharynx, larynx and associated structures, and upper GI tract. The upper GI tract was grossly normal. The major papilla was severely edematous with disruption of the normal landmarks precluding biliary cannulation despite multiple attempts. The ventral pancreatic duct was inadvertently cannulated however the guidewire would not pass beyond the area of the head hence no stent was placed. Sludge was seen actively flowing out of the papilla. Given downtrending LFTs and WBC count, low suspicion for cholangitis, the procedure was aborted. Impression: - The major papilla appeared severely edematous precluding biliary cannulation. Recommendation: - Observe patient's clinical course. - Monitor LFTs. - Continue ABx. - Consider an IOC during cholecystectomy. - If any signs of developing biliary obstruction then will perform EUS guided biliary access (rendeprestonvous). Michael Law MD 05/30/2021 10:39:04 AM This report has been signed electronically. Note Initiated On: 05/30/2021 7:28 AM Number of Addenda: 0 I attest to the content of the Intraoperative Record and orders documented therein, exceptions below {[id number]}
[2021-05-30] MEDS ORDERED: ePHEDrine sulfate 50 MG/ML SYR ONE (10:53)
[2021-05-30] MEDS ORDERED: OPTIRAY 300 IV PRN (11:30)
--- NOTE | 2021-05-30 11:40 | Operative Report ---
PG Post Operative Report Pre & Post Diagnosis Operation Date: 05/30/21 07:30 Pre-Op Diagnosis: cholecysitis, choledocholithiasis, pancreatitis Post-Op Diagnosis: cholecysitis, choledocholithiasis, pancreatitis I identified the patient and participated in the time-out.: Yes Procedure Operation Date: 05/30/21 07:30 Actual Procedures p Laparoscopic Cholecystectomy with cholangiogram(Not Applicable) - Tyson Stokes DO, FACS Surgeon Tyson Stokes DO, GRAZYNA Technical Supervisor R[employer] Estimated Blood Loss 10 Findings Consistent with Post-Op Diagnosis (Inflammation due to pancreatitis, GB stones, no CBD stone. Periampullary edema precluding cannulation.) Critical view of safety obtained, dilated cystic duct. Cholangiogram performed with flow into the duodenum with no obvious filling defects in the common bile duct. Cystic duct and artery clipped and divided. Good hemostasis. Specimens Gallbladder Anesthesia Type General Complications none Disposition Accompanied Patient To Recovery: No Disposition: Recovery Room Indications 61-year-old female presented with gallstone pancreatitis, choledocholithiasis, and likely acute cholecystitis. She was admitted for overnight observation and GI was consulted. Plan for laparoscopic cholecystectomy with possible cholangiogram after ERCP by GI under the same anesthesia. The risks of the procedure were discussed, all questions were answered, and the patient agreed to proceed with surgery as planned. Description of Procedure The patient was properly identified, consented, and taken to the operating room where she was placed in the supine position. General endotracheal anesthesia was induced. SCDs and a safety belt were placed. Preoperative antibiotics were administered. The patient's abdomen was prepped and draped in the standard sterile fashion. A surgical timeout was performed and all parties were in agreement that this was the correct patient and procedure to be performed and we continued as planned. An incision was made superior and to the left of the umbilicus overlying the rectus muscle and the Veress needle was inserted. Saline drop test confirmed entry into the peritoneum. The abdomen was insufflated with carbon dioxide which the patient tolerated without incident. The abdomen was then entered using the Optiview technique and a 5 mm trocar. The laparoscope was inserted and no damage from initial trocar or Veress needle placement was noted, no gross abnormalities were noted within the 4 quadrants of the abdomen. An 11 mm port was placed in the subxiphoid position and two 5 mm ports were then placed in the right subcostal position. The patient was placed in reverse Trendelenburg position and rotated towards the left. There was some bilious ascites as well as fibrinous exudate. There were adhesions to the dome of the gallbladder which were taken down bluntly. The dome of the gallbladder was retracted towards the left upper quadrant and the infundibulum was retracted toward the right lower quadrant revealing Calot's triangle. Peritoneal attachments were taken down with electrocautery and blunt dissection. The cystic duct and artery were circumferentially dissected. The cystic duct was dilated. A window of safety was obtained showing the cystic duct entering the gallbladder with no aberrant structures noted. The Trivedi cholangiocatheter was then used to perform an intraoperative cholangiogram which showed no obvious filling defects, and good filling of the duodenum and hepatic radicals with contrast. The cystic duct and artery were doubly clipped and divided. The gallbladder was then lifted off the gallbladder fossa with electrocautery. The gallbladder was placed in an Endo Catch bag and removed through the subxiphoid port site. The right upper quadrant was irrigated and hemostasis was found to be good. 5 mm trochars were removed under direct visualization and the abdomen was allowed to collapse. The subxiphoid port site fascia was closed with 0 Vicryl suture utilizing the Roberto-Khushbu device prior to removal of the ports. The wound was irrigated, and the skin of all ports was closed with 4-0 Monocryl subcuticular sutures. Dermabond was placed over the wounds. The patient was extubated in the operating room and taken to the PACU where she recovered without apparent incident. All sponge, instrument and needle counts were correct at the conclusion of the procedure. The patient tolerated the procedure well. I attest to the content of the Intraoperative Record and any orders documented therein. Any exceptions are noted below.
--- NOTE | 2021-05-30 11:40 | Fluoroscopy Report ---
FL ERCP biliary ductal CLINICAL HISTORY: ERCP IN OR COMPARISON STUDY: None. FLUOROSCOPY TIME: 3 minutes and 35 seconds. 3 fluoroscopic spot images submitted. FINDINGS: Fluoroscopy was provided for an attempted ERCP. However, the ERCP was not completed. IMPRESSION: Fluoroscopy provided for an attempted ERCP. ACT 112: Negative or not required by law. Electronically signed by: Alejo Gilmore M.D. 05/30/2021 11:38 AM
--- NOTE | 2021-05-30 12:27 | Fluoroscopy Report ---
INTRAOPERATIVE CHOLANGIOGRAM HISTORY: Post cholecystectomy. FLUOROSCOPY TIME: 31 seconds.. FINDINGS: Fluoroscopy was provided for an intraoperative cholangiogram status post cholecystectomy. C ontrast was injected through the cystic duct remnant. The common bile duct demonstrate mild smooth na rrowing distally.. There are no filling defects seen within the common bile duct to suggest a retaine d stone. Contrast extends into the small bowel. There is no intrahepatic bile duct dilatation. IMPRESSION: Fluoroscopy provided for an intraoperative cholangiogram status post cholecystectomy. No filling defects within the common bile duct. Mild smooth narrowing of the distal common bile duct. Th is could related to the ampulla. ACT 112: Negative or not required by law. Electronically signed by: Alejo Gilmore M.D. 05/30/2021 12:26 PM
[2021-05-30] MEDS: KETOROLAC TROMETHAMINE 15 MG/ML VIAL IV SCH ×2 (13:49→18:44)
--- NOTE | 2021-05-30 17:13 | Anesthesiology Progress Note ---
Date of Service May 30, 2021 Anesthesia Post Procedure Vital Signs Vital Signs: Temp Pulse Pulse Pulse Resp BP BP 05/30/21 17:00 79 05/30/21 16:19 37.4 C 109 H 18 111/70 05/30/21 14:12 37 C 86 18 113/76 05/30/21 12:42 37 C 82 18 117/77 05/30/21 12:25 36.8 C 76 20 119/75 05/30/21 12:15 36.8 C 84 18 122/57 L 05/30/21 12:05 76 18 137/74 05/30/21 11:55 82 9 L 139/79 05/30/21 11:45 36.3 C L 94 H 20 154/85 H 05/30/21 07:15 102 H 05/30/21 03:11 37.0 C 94 H 20 135/78 05/30/21 00:15 37.2 C 79 20 117/68 05/29/21 23:37 79 05/29/21 20:30 87 05/29/21 20:29 36.9 C 85 20 136/82 Pulse Ox 05/30/21 17:00 05/30/21 16:19 91 05/30/21 14:12 96 05/30/21 12:42 92 05/30/21 12:25 94 05/30/21 12:15 94 05/30/21 12:05 97 05/30/21 11:55 97 05/30/21 11:45 96 05/30/21 07:15 05/30/21 03:11 95 05/30/21 00:15 96 05/29/21 23:37 05/29/21 20:30 05/29/21 20:29 95 Pain Intensity Abdomen: Pain Intensity: 0 Transfer of Care Handoff Completed per policy Notes Mental Status: alert / awake / arousable and participated in evaluation Patient Amnestic to Procedure: Yes Nausea / Vomiting: adequately controlled Pain: adequately controlled Airway Patency, RR, SpO2: stable & adequate BP & HR: stable & adequate Hydration State: stable & adequate Anesthetic Complications: no major complications apparent and Pt Satisfied with anesthetic care
--- NOTE | 2021-05-30 17:26 | Hospitalist Progress Note ---
Date of Service May 30, 2021 Assessment & Plan (1) Acute pancreatitis: Plan: -Likely gallstone pancreatitis -Lipase level downtrending -Patient is s/p cholecystectomy -WBC count was elevated upon presentation and is now normal. -I do not believe patient needs long-term antibiotic therapy; however, will keep on board for now given reports of bilious ascites. Will clarify this further with general surgery. Appreciate their recommendations and determining if pa tient should complete a full course of antibiotic therapy. Cholecystitis is listed as a postoperative diagnosis (2) Elevated LFTs: Plan: -Downtrending. Continue to trend (3) Cholelithiasis: Plan: -? Associated acute cholecystitis. Patient did not have any evidence of cholecystitis on right upper quadrant ultrasound but there is reports of bilious ascites on her operative report -I suspect her white blood cell count was reactive upon presentation and it is now normal -We will keep antibiotic regimen on board until clarified further with general surgery. Appreciate recommendations. -Clear liquids have been ordered by general surgery. (4) DVT (deep venous thrombosis): Plan: History of this. Ok to hold Eliquis currently but increased risk of PE during hospitalization. Will likely restart tomorrow once hemostasis is achieved (since she is just s/p surgical intervention) Admission and Anticipated Discharge Date Admission Date: May 29, 2021 Subjective Patient seen on daily rounds today. She is a 61-year-old white female with a history of DVT on routine Eliquis who presented to the ED complaining of abdominal pain and vomiting X 9 days. She was found to have leukocytosis of 17.5 with a left shift. In addition, she had elevated LFTs (total bilirubin 1.9, AST 307, ALT 314). Her lipase was elevated at 5795. She did not have a CT scan of the abdomen and pelvis but did have an ultrasound of the right upper quadrant that showed a stone filled gallbladder without of any evidence of gallbladder wall thickening or pericholecystic fluid. Was subsequently hospitalized where she received IV hydration, IV pain medication and antiemetics as needed. She is remained n.p.o. and went to the operating room this morning for an ERCP that showed sludge spewing from the ampulla. The pancreatic duct was inadvertently cannulated due to edema and not able to pass the guidewire through. Procedure was aborted. Patient subsequently underwent a laparoscopic cholecystectomy with cholangiogram. No evidence of filling defect. Patient was noted to have bilious ascites. Otherwise had an uneventful perioperative course and tolerated the procedure well. Seen by myself postoperatively and overall she feels "great". Her lab data this morning was improved. Her white count is 11.4. Renal function stable. LFTs are downtrending. Lipase is also downtrending. She denies any abdominal pain, nausea or vomiting. Review of Systems Review of Systems: All systems reviewed and are unremarkable except as noted in HPI and below Denies fevers, chills, headache, nasal congestion, sore throat, cough, chest pain, shortness of breath, palpitations, orthopnea, PND, abdominal pain, nausea, vomiting, diarrhea, constipation, dysuria, hematuria, frequency, back pain, joint pain or swelling, easy bruising or bleeding, skin lesions or rashes. Physical Exam Physical Exam: General: Resting comfortably in her hospital bed. Daughter at bedside. Somnolent but arousable. NAD. HEENT: Head is AT/NC buccal mucosa is moist and pink Neck: No JVD. Negative hepatojugular reflex Cardiac: RRR without M/G/R Lungs: CTA without W/R/R Abdomen: Abdomen slightly distended (likely from recent laparoscopic procedure). For port incisions that are well approximated, clean and dry. Extremities: No peripheral clubbing cyanosis or edema Neuro: A&O X4 cranial nerves II through XII are grossly intact no focal neuro deficits Skin: No obvious skin lesions or rashes Psych: Appropriate affect pleasant and cooperative Results & Data Results & Data ([facility]) Vital Signs (Past 12 Hours) Vital Signs Temp Pulse Pulse Pulse Resp BP BP 05/30/21 17:00 79 05/30/21 16:19 37.4 C 109 H 18 111/70 05/30/21 14:12 37 C 86 18 113/76 05/30/21 12:42 37 C 82 18 117/77 05/30/21 12:25 36.8 C 76 20 119/75 05/30/21 12:15 36.8 C 84 18 122/57 L 05/30/21 12:05 76 18 137/74 05/30/21 11:55 82 9 L 139/79 05/30/21 11:45 36.3 C L 94 H 20 154/85 H 05/30/21 07:15 102 H Pulse Ox 05/30/21 17:00 05/30/21 16:19 91 05/30/21 14:12 96 05/30/21 12:42 92 05/30/21 12:25 94 05/30/21 12:15 94 05/30/21 12:05 97 05/30/21 11:55 97 05/30/21 11:45 96 05/30/21 07:15 Laboratory Results 05/30/21 06:51 05/30/21 06:51 PG Care Time/CCT Total # of Minutes Spent Total Time Spent with Patient: Total time spent is greater than 50% in co ordination of care (as documented) at patient's floor/unit and/or counseling patient: Coding Level of Care Code 16302 Subseq Hosp Care Lvl 2 Diagnoses Acute pancreatitis K85.10 Acute pancreatitis complication: unspecified Pancreatitis type: biliary Elevated LFTs R79.89 Cholelithiasis K80.21 Biliary obstruction: with biliary obstruction Cholecystitis presence: without cholecystitis Cholelithiasis location: gallbladder DVT (deep venous thrombosis) I82.409 (1) Acute pancreatitis Acute pancreatitis complication: unspecified Pancreatitis type: biliary Qualified Code(s): K85.10 - Biliary acute pancreatitis without necrosis or infection (2) Cholelithiasis Biliary obstruction: with biliary obstruction Cholecystitis presence: without cholecystitis Cholelithiasis location: gallbladder Qualified Code(s): K80.21 - Calculus of gallbladder without cholecystitis with obstruction
[2021-05-31] MEDS: KETOROLAC TROMETHAMINE 15 MG/ML VIAL IV SCH ×3 (00:43→12:11)
[2021-05-31] MEDS: LACTATED RINGER'S 1,000 ML IV SCH (02:19)
--- NOTE | 2021-05-31 05:40 | Surgery Progress Note ---
Date of Service May 31, 2021 Assessment & Plan (1) Cholelithiasis: Plan: Postoperative day #1 ERCP and laparoscopic cholecystectomy Continue analgesics Continue antiemetics Continue liquids for the present time. Will consider advancing her diet as bowel function improves and also if her LFTs and lipase are trending in the correct direction Continue IV fluid for hydration till oral intake adequate Continue antibiotics in the form of Zosyn Increase ambulation Encourage use of incentive spirometry Admission and Anticipated Discharge Date Admission Date: May 29, 2021 Supervising Physician Co-Signing Physician Notes Patient seen and examined, agree with above. POD #1 attempted ERCP followed by laparoscopic cholecystectomy with cholangiogram. Feeling much better than prior to surgery, sore especially at epigastric incision. Tolerating liquids. On exam she is afebrile stable vitals. Abdomen is soft, appropriately tender palpation. Incisions without infection. Ecchymosis at epigastric incision. Labs reviewed, LFTs downtrending. Advance diet to regular, will discharge later this morning if tolerates regular diet. Activity restrictions, return precautions, and wound care instructions reviewed. Follow-up in 2 weeks in general surgery clinic. Subjective Patient is resting comfortably in bed. She denies any nausea vomiting since surgery. She has tolerated clear liquids. She has not had a bowel movement since her surgery. She has been up out of bed to the bathroom and feels steady on her feet. Physical Exam Gastrointestinal (Abdomen): Incisions are all clean, dry, and intact. Bowel sounds are present. Abdomen has minimal distention. There is appropriate tenderness to palpation from surgical incisions. Results & Data ([facility]) Vital Signs (Past 12 Hours) Vital Signs Temp Pulse Pulse Resp BP Pulse Ox 05/31/21 04:42 36.8 C 88 18 113/71 96 05/31/21 00:08 77 05/30/21 23:54 37.1 C 95 H 18 121/79 95 05/30/21 20:13 37.4 C 86 18 106/71 97 PG Care Time/CCT Total # of Minutes Spent Total Time Spent with Patient: Total time spent is greater than 50% in coordination of care (as documented) at patient's floor/unit and/or counseling patient: Coding Level of Care Code None Diagnoses Cholelithiasis K80.21 Biliary obstruction: with biliary obstruction Cholecystitis presence: without cholecystitis Cholelithiasis location: gallbladder (1) Cholelithiasis Biliary obstruction: with biliary obstruction Cholecystitis presence: without cholecystitis Cholelithiasis location: gallbladder Qualified Code(s): K80.21 - Calculus of gallbladder without cholecystitis with obstruction
[2021-05-31] MEDS: PIPERACILLIN/TAZOBACTAM 3.375 GM in DEXTROSE 5% 100 ML IV SCH (06:01)
[2021-05-31 06:37] LABS: Eosinophils # (auto) 0.03 K/uL (0-0.5); Eosinophils % (auto) 0.3 %; Hemoglobin 12.9 g/dL (12.0-16.0); Immature Granulocytes # (auto) 0.02 K/uL (0.00-0.02); Immature Granulocytes % (auto) 0.2 %; Lymphocytes # (auto) 1.32 K/uL (1.2-3.4); Lymphocytes % (auto) 11.1 %; Mean Corpuscular Hemoglobin 30.4 pg (25-34); Mean Corpuscular Hgb Conc 32.3 g/dL (32-36); Mean Corpuscular Volume 94.3 fL (80-100); Mean Platelet Volume 10.7 fL (7.4-10.4); Monocytes # (auto) 0.54 K/uL (0.11-0.59); Monocytes % (auto) 4.5 %; Neutrophils # (auto) 10.03 K/uL (1.4-6.5); Neutrophils % (auto) 83.9 %; Platelet Count 237 K/uL (130-400); RDW Coefficient of Variation 14.7 % (11.5-14.5); RDW Standard Deviation 50.7 fL (36.4-46.3); Red Blood Count 4.24 M/uL (4.2-5.4); White Blood Count 11.94 K/uL (4.8-10.8)
[2021-05-31 07:07] LABS: Albumin Level 2.3 gm/dl (3.4-5.0); BUN Creatinine Ratio 12.8 (10-20); Calcium 7.6 mg/dl (8.5-10.1); Creatinine Clr Calc Pharmacy 73.6 ml/min; Est GFR (African American) 94.4 ml/min; Est GFR (Non-African American) 81.5 ml/min; Magnesium 1.9 mg/dl (1.8-2.4); Potassium 3.7 mmol/L (3.5-5.1)
[2021-05-31 07:10] LABS: Albumin Globulin Ratio 0.7 (0.9-2); Bilirubin,Total 1.3 mg/dl (0.2-1); Globulin 3.4 gm/dl (2.5-4.0); Total Protein 5.7 gm/dl (6.4-8.2)
[2021-05-31] MEDS ORDERED: KETOROLAC 30 MG/ML VIAL IV ONE (15:55)
[2021-05-31] MEDS ORDERED: ZOLPIDEM TARTRATE 5 MG TAB PO PRN (15:55)
--- NOTE | 2021-05-31 16:29 | Hospitalist Progress Note ---
Date of Service May 31, 2021 Assessment & Plan (1) Acute pancreatitis: Plan: -Likely gallstone pancreatitis s/p cholecystectomy -Lipase level downtrending -WBC count was elevated upon presentation and is now normal -Spoke with surgery who agrees that the patient can be taken off of her antibiotics. Leukocytosis was likely reactive (2) Elevated LFTs: Plan: -Downtrending. Continue to trend--> near normal (3) Cholelithiasis: Plan: -Without associated acute cholecystitis. Patient did not have any evidence of cholecystitis on right upper quadrant ultrasound but there is reports of bilious ascites on her operative report -I suspect her white blood cell count was reactive upon presentation and it is now normal -Was placed on Zosyn empirically upfront but I have spoken to surgery who agrees that this can be discontinued for now -Would be inclined to restart antibiotics if her white blood cell count elevates tomorrow (4) DVT (deep venous thrombosis): Plan: History of this. Eliquis held upfront; however, appropriate hemostasis has been achieved. Okay to resume Eliquis now Plan: Advance diet Follow-up labs in [facility] to help with sleep tonight If doing well, can likely be discharged tomorrow (06/01/2021) Admission and Anticipated Discharge Date Admission Date: May 29, 2021 Subjective Patient seen on daily rounds today. Denies any abdominal pain (other than mild incisional pain). Only complaints today are the fact that she did not sleep well on account of her roommate snoring. She She denies fevers, chills, chest pain, shortness of breath, abdominal pain, nausea or vomiting. Diet has been advanced to postsurgical and patient is tolerating this without issues Review of Systems Review of Systems: All systems reviewed and are unremarkable except as noted in HPI and below Denies fevers, chills, headache, nasal congestion, sore throat, cough, chest pain, shortness of breath, palpitations, orthopnea, PND, abdominal pain, nausea, vomiting, diarrhea, constipation, dysuria, hematuria, frequency, back pain, joint pain or swelling, easy bruising or bleeding, skin lesions or rashes. Physical Exam Physical Exam: General: Resting comfortably in her hospital bed. She does not appear to be ill or toxic. NAD. HEENT: Head is AT/NC buccal mucosa is moist and pink Neck: No JVD. Negative hepatojugular reflex Cardiac: RRR with 1/6 PAWEL Lungs: CTA without W/R/R Abdomen: Normoactive X4. Soft. Tender at incision site but no deep tenderness noted Extremities: No peripheral clubbing cyanosis or edema Neuro: A&O X4 cranial nerves II through XII are grossly intact no focal neuro deficits Skin: No obvious skin lesions or rashes Psych: Appropriate affect pleasant and cooperative Results & Data Results & Data ([facility]) Vital Signs (Past 12 Hours) Vital Signs Temp Pulse Pulse Resp BP Pulse Ox 05/31/21 12:45 36.8 C 85 16 117/69 95 05/31/21 08:00 85 05/31/21 07:25 37 C 80 16 127/80 95 05/31/21 04:42 36.8 C 88 18 113/71 96 Laboratory Results 05/31/21 05:26 05/31/21 05:26 Total bilirubin: 1.3 AST: 87 ALT: 133 Lipase: 539 PG Care Time/CCT Total # of Minutes Spent Total Time Spent with Patient: Total time spent is greater than 50% in coordination of care (as documented) at patient's floor/unit and/or counseling patient: Coding Level of Care Code 18407 Subseq Hosp Care Lvl 2 Diagnoses Acute pancreatitis K85.10 Acute pancreatitis complication: unspecified Pancreatitis type: biliary Elevated LFTs R79.89 Cholelithiasis K80.21 Biliary obstruction: with biliary obstruction Cholecystitis presence: without cholecystitis Cholelithiasis location: gallbladder DVT (deep venous thrombosis) I82.409 (1) Acute pancreatitis Acute pancreatitis complication: unspecified Pancreatitis type: biliary Qualified Code(s): K85.10 - Biliary acute pancreatitis without necrosis or infection (2) Cholelithiasis Biliary obstruction: with biliary obstruction Cholecystitis presence: without cholecystitis Cholelithiasis location: gallbladder Qualified Code(s): K80.21 - Calculus of gallbladder without cholecystitis with obstruction
[2021-05-31] MEDS: ONDANSETRON INJ 2 MG/ML 2 ML VIAL IV PRN (17:32)
[2021-05-31] MEDS: APIXABAN 5 MG TABLET PO SCH (21:55)
[2021-05-31] MEDS: HYDROmorphone INJ 0.5 MG/0.5 ML SYR IV PRN (21:58)
[2021-06-01] MEDS: KETOROLAC TROMETHAMINE 15 MG/ML VIAL IV PRN ×2 (02:02→09:34)
[2021-06-01] MEDS: ONDANSETRON INJ 2 MG/ML 2 ML VIAL IV PRN ×2 (02:02→18:14)
[2021-06-01] MEDS: HYDROmorphone INJ 0.5 MG/0.5 ML SYR IV PRN ×2 (05:49→21:24)
[2021-06-01 07:39] LABS: Eosinophils # (auto) 0.01 K/uL (0-0.5); Eosinophils % (auto) 0.1 %; Hematocrit (blood only) 35.8 % (37-47); Hemoglobin 11.9 g/dL (12.0-16.0); Immature Granulocytes # (auto) 0.03 K/uL (0.00-0.02); Immature Granulocytes % (auto) 0.3 %; Lymphocytes # (auto) 0.92 K/uL (1.2-3.4); Lymphocytes % (auto) 7.8 %; Mean Corpuscular Hemoglobin 30.7 pg (25-34); Mean Corpuscular Hgb Conc 33.2 g/dL (32-36); Mean Corpuscular Volume 92.5 fL (80-100); Mean Platelet Volume 10.4 fL (7.4-10.4); Monocytes # (auto) 0.66 K/uL (0.11-0.59); Monocytes % (auto) 5.6 %; Neutrophils % (auto) 86.2 %; Platelet Count 235 K/uL (130-400); RDW Coefficient of Variation 14.2 % (11.5-14.5); Red Blood Count 3.87 M/uL (4.2-5.4); White Blood Count 11.82 K/uL (4.8-10.8)
[2021-06-01 08:05] LABS: BUN Creatinine Ratio 14.5 (10-20); Calcium 8.2 mg/dl (8.5-10.1); Est GFR (African American) 109.7 ml/min; Est GFR (Non-African American) 94.7 ml/min; Magnesium 2.1 mg/dl (1.8-2.4); Potassium 4.1 mmol/L (3.5-5.1)
[2021-06-01 08:08] LABS: Albumin Globulin Ratio 0.5 (0.9-2); Globulin 3.7 gm/dl (2.5-4.0); Total Protein 5.7 gm/dl (6.4-8.2)
[2021-06-01] MEDS: APIXABAN 5 MG TABLET PO SCH ×2 (09:35→20:41)
[2021-06-01] MEDS: oxyCODONE/ACETAMINOPHEN 5mg/325mg TAB PO PRN ×2 (13:10→18:12)
--- NOTE | 2021-06-01 13:38 | Hospitalist Progress Note ---
Date of Service June 01, 2021 Assessment & Plan (1) Acute pancreatitis: Plan: -Likely gallstone pancreatitis s/p cholecystectomy -pancreatitis resolved -some abd bloating and pain now most likely from ileus -Lipase level normal, LFTs trending downward -WBC count was elevated upon presentation and is now normal-dcd abx -continue regular diet (2) Ileus: Plan: secondary to gallstone pancreatitis and recent surgery no BM in 5 days add docusate encouraged ambulation (3) Elevated LFTs: Plan: -Downtrending. Continue to trend--> near normal (4) Cholelithiasis: Plan: -Without associated acute cholecystitis. Patient did not have any evidence of cholecystitis on right upper quadrant ultrasound but there is reports of bilious ascites on her operative report -I suspect her white blood cell count was reactive upon presentation and it is now normal -Was placed on Zosyn empirically upfront but I have spoken to surgery who agrees this can be discontinued -now s/p lap mariah -add on po Percocet for pain, dc Toradol as is now on Eliquis -continue IV dilaudid but encouraged po analgesia -docusate for constipation, ileus, encouraged ambulation (5) DVT (deep venous thrombosis): Plan: History of this. Eliquis held upfront; however, appropriate hemostasis has been achieved. -have since resumed Eliquis hgb stable Plan: DVT Proph-ELiqus Dispo-continued stay for ileus hopeful=l for dc to home tomorrow Admission and Anticipated Discharge Date Admission Date: May 29, 2021 Subjective Pt feeling increased bloating and abd pain today but thinks it's from constipation and post-op pain. Some pain in back also. SHe ate applesauce last night and then couldn't sleep as it felt like the applesauce was "just sitting" in her chest. No nausea/vomiting. Is passing flatus but no BM in 5 days. No CP or SOB. She did walk the halls 6-7 laps last night. Took IV dilaudid this AM and percocet right before I saw her. Review of Systems Review of Systems: All systems reviewed & are unremarkable except as noted in HPI & below Physical Exam Constitutional: WD/WN, vitals as above Eyes: + anicteric sclerae Neck: trachea midline, no thyromegaly Respiratory: normal respiratory effort, lungs clear to auscultation Cardiovascular: RRR, no murmur, no edema Chest (Breasts): Chest: normal inspection of chest Gastrointestinal (Abdomen): Inspection/Auscultation: + hypoactive bowel sounds; + abdomen abnormal to inspection (multiple laparoscopic wounds with dremabond in palce,no erythema) Percussion/Palpation: + abdomen tender (mild, diffuse, no guarding or rebound) and abdomen soft; no guarding Musculoskeletal: Extremities: extremities normal to inspection; no cyanosis and no clubbing Skin: no rashes, warm and dry Neurologic: moves all extremities and awake; no focal motor deficits Psychiatric: A+Ox3, euthymic affect Lymphatic: no lymphedema Results & Data Results & Data ([facility]) Vital Signs (Past 12 Hours) Vital Signs Temp Pulse Resp BP Pulse Ox 06/01/21 05:59 36.9 C 94 H 15 143/86 H 94 Laboratory Results 06/01/21 06/01/21 Range/Units 07:21 07:21 WBC 11.82 H (4.8-10.8) K/uL RBC 3.87 L (4.2-5.4) M/uL Hgb 11.9 L (12.0-16.0) g/dL Hct 35.8 L (37-47) % MCV 92.5 (80-100) fL MCH 30.7 (25-34) pg MCHC 33.2 (32-36) g/dL RDW Std Deviation 48.0 H (36.4-46.3) fL RDW Coeff of Phillip 14.2 (11.5-14.5) % Plt Count 235 (130-400) K/uL MPV 10.4 (7.4-10.4) fL Immature Gran % (Auto) 0.3 % Neut % (Auto) 86.2 % Lymph % (Auto) 7.8 % [place] % (Auto) 5.6 % Eos % (Auto) 0.1 % Baso % (Auto) 0.0 % Neut # (Auto) 10.20 H (1.4-6.5) K/uL Lymph # (Auto) 0.92 L (1.2-3.4) K/uL [place] # (Auto) 0.66 H (0.11-0.59) K/uL Eos # (Auto) 0.01 (0-0.5) K/uL Baso # (Auto) 0.00 (0-0.2) K/uL Immature Gran # (Auto) 0.03 H (0.00-0.02) K/uL Sodium 137 (136-145) mmol/L Potassium 4.1 (3.5-5.1) mmol/L Chloride 106 (98-107) mmol/L Carbon Dioxide 25 (21-32) mmol/L Anion Gap 6.0 (3-11) BUN 10 (7-18) mg/dl Creatinine 0.66 (0.6-1.2) mg/dl Est Cr Clr Drug Dosing 87.0 ml/min Est GFR ( Amer) 109.7 ml/min Est GFR (Non-Af Amer) 94.7 ml/min BUN/Creatinine Ratio 14.5 (10-20) Glucose 95 (70-99) mg/dl Calcium 8.2 L (8.5-10.1) mg/dl Magnesium 2.1 (1.8-2.4) mg/dl Total Bilirubin 1.0 (0.2-1) mg/dl AST 43 H (15-37) U/L ALT 86 H (12-78) U/L Alkaline Phosphatase 109 (45-117) U/L Total Protein 5.7 L (6.4-8.2) gm/dl Albumin 2.0 L (3.4-5.0) gm/dl Globulin 3.7 (2.5-4.0) gm/dl Albumin/Globulin Ratio 0.5 L (0.9-2) Lipase 150 (73-393) U/L PG Care Time/CCT Total # of Minutes Spent Total Time Spent with Patient: Total time spent is greater than 50% in coordination of care (as documented) at patient's floor/unit and/or counseling patient: Coding Level of Care Code 83869 Subseq Hosp Care Lvl 2 Diagnoses Acute pancreatitis K85.10 Acute pancreatitis complication: unspecified Pancreatitis type: biliary Elevated LFTs R79.89 Cholelithiasis K80.21 Biliary obstruction: with biliary obstruction Cholecystitis presence: without cholecystitis Cholelithiasis location: gallbladder DVT (deep venous thrombosis) I82.409 Ileus K56.7 (1) Acute pancreatitis Acute pancreatitis complication: unspecified Pancreatitis type: biliary Qualified Code(s): K85.10 - Biliary acute pancreatitis without necrosis or infection (2) Cholelithiasis Biliary obstruction: with biliary obstruction Cholecystitis presence: without cholecystitis Cholelithiasis location: gallbladder Qualified Code(s): K80.21 - Calculus of gallbladder without cholecystitis with obstruction
[2021-06-01] MEDS: DOCUSATE SODIUM 100 MG CAP PO SCH ×2 (15:13→20:41)
[2021-06-02] MEDS: HYDROmorphone INJ 0.5 MG/0.5 ML SYR IV PRN (03:20)
[2021-06-02 06:38] LABS: Eosinophils # (auto) 0.02 K/uL (0-0.5); Eosinophils % (auto) 0.2 %; Hematocrit (blood only) 34.5 % (37-47); Hemoglobin 11.4 g/dL (12.0-16.0); Immature Granulocytes # (auto) 0.01 K/uL (0.00-0.02); Immature Granulocytes % (auto) 0.1 %; Lymphocytes # (auto) 0.72 K/uL (1.2-3.4); Lymphocytes % (auto) 6.5 %; Mean Corpuscular Hemoglobin 30.4 pg (25-34); Mean Platelet Volume 10.3 fL (7.4-10.4); Monocytes # (auto) 0.81 K/uL (0.11-0.59); Monocytes % (auto) 7.3 %; Neutrophils % (auto) 85.9 %; Platelet Count 328 K/uL (130-400); RDW Coefficient of Variation 14.1 % (11.5-14.5); RDW Standard Deviation 47.4 fL (36.4-46.3); Red Blood Count 3.75 M/uL (4.2-5.4); White Blood Count 11.16 K/uL (4.8-10.8)
[2021-06-02 07:33] LABS: Albumin Globulin Ratio 0.5 (0.9-2); BUN Creatinine Ratio 15.8 (10-20); Bilirubin,Total 0.8 mg/dl (0.2-1); Calcium 8.5 mg/dl (8.5-10.1); Creatinine Clr Calc Pharmacy 92.6 ml/min; Est GFR (Non-African American) 96.6 ml/min; Globulin 3.9 gm/dl (2.5-4.0); Magnesium 2.1 mg/dl (1.8-2.4); Phosphorus 2.2 mg/dl (2.5-4.9); Potassium 3.4 mmol/L (3.5-5.1); Total Protein 5.9 gm/dl (6.4-8.2)
[2021-06-02] MEDS: oxyCODONE/ACETAMINOPHEN 5mg/325mg TAB PO PRN (08:14)
[2021-06-02] MEDS: DOCUSATE SODIUM 100 MG CAP PO SCH (08:15)
[2021-06-02] MEDS: APIXABAN 5 MG TABLET PO SCH (08:15)
[2021-06-02] MEDS ORDERED: POTASSIUM CHLORIDE CRTAB 20 MEQ TABCR PO STA (10:23)
[2021-06-02] MEDS ORDERED: POT PHOSPHATE MONOBASIC W/ SOD TAB PO ONE (10:26)
--- NOTE | 2021-06-02 13:03 | Surgery Progress Note ---
Date of Service June 02, 2021 Assessment & Plan (1) Hx laparoscopic cholecystectomy: Plan: s/p lap mariah, doing well okay to d/c to home f/u in 2 weeks return precautions given, call with questions or concerns Admission and Anticipated Discharge Date Admission Date: May 29, 2021 Subjective POD#3 lap mariah with negative cholangiogram, feeling better. Pain improved, tolerated diet, passing flatus. Physical Exam Constitutional: WD/WN, vitals as above Gastrointestinal (Abdomen): Percussion/Palpation: + abdomen tender (appropriately) and abdomen soft; no guarding, abdomen not rigid and no hepatos plenomegaly Results & Data ([facility]) Vital Signs (Past 12 Hours) Vital Signs Temp Pulse Resp BP Pulse Ox 06/02/21 11:24 37.1 C 100 H 16 114/68 93 06/02/21 07:10 37.0 C 96 H 16 149/89 H 92 PG Care Time/CCT Total # of Minutes Spent Total Time Spent with Patient: Total time spent is greater than 50% in coordination of care (as documented) at patient's floor/unit and/or counseling patient: Coding Level of Care Code None Diagnoses Hx laparoscopic cholecystectomy Z90.49
--- NOTE | 2021-06-02 13:28 | Discharge Summary ---
Date of Service June 02, 2021 Admission HPI Per Admitting Provider Beverly Rodriguez is a 61 year old female who presents to the ER with abdominal pain. She reports right upper quadrant abdominal pain started 9 days ago. She presented to an ER in [place] but after workup there was diagnosed with a hiatal hernia and symptoms felt to be secondary to this. The following day she felt better but then vomited the day after this. She was then symptom free up until this morning. She had planned on going to the beach today but the same abdominal pain started again but much more severe. Severity at worst 10/10, currently 4/10 after morphine given in the ER. It is in her right upper quad rant, radiating to her right shoulder. No fever but having chills. Associated nausea and vomiting. No diarrhea or constipation. No melena or bright red blood in stool. She is on Eliquis for a DVT diagnosed with December (planned for 4-6 months of treatment). She last took Eliquis this morning but vomited after taking this therefore unknown if she absorbed any. In the ER lipase and LFTs are elevated. US RUQ showed cholelithiasis without sonographic evidence of acute cholecystitis and no CBD dilatation. GI and Surgery were contacted and recommended starting IV Zosyn and ERCP planned for tomorrow. She was referred to medicine for admission and ongoing management of pancreatitis. Principal Diagnosis Acute gallstone pancreatitis Discharge Exam Constitutional WD/WN, vitals as above Eyes + anicteric sclerae Neck trachea midline, no thyromegaly Respiratory normal respiratory effort, lungs clear to auscultation Cardiovascular RRR, no murmur, no edema Chest (Breasts) Chest: normal inspection of chest Gastrointestinal (Abdomen) Inspection/Auscultation: normal bowel sounds; + abdomen abnormal to inspection (multiple laparoscopic wounds with dremabond in palce,no erythema) Percussion/Palpation: + abdomen tender (mildimproved from previous, no guarding or rebound) and abdomen soft; no guarding Musculoskeletal Extremities: extremities normal to inspection (and no calf tenderness); no cyanosis and no clubbing Skin no rashes, warm and dry Neurologic moves all extremities and awake; no focal motor deficits Psychiatric A+Ox3, euthymic affect Lymphatic no lymphedema Discharge Data Allergies Allergy/AdvReac Type Severity Reaction Status Date / Time No Known Allergies Allergy Unverified 05/29/21 16:33 Consultations 05/29/21 16:19 ED Decision to Admit Stat 05/29/21 17:15 Consult Gastroenterology Routine 05/29/21 17:16 Consult General Surgery Routine Procedures Performed Operation Date: 05/30/21 07:30 Actual Procedures p Laparoscopic Cholecystectomy with cholangiogram(Not Applicable) - Tyson Stokes DO, FACS s Endoscopic Retrograde Cholangiopancreatogram; Endoscopic Ultrasonography Upper(Not Applicable) - Michael Law MD Ordered Studies 05/29/21 14:45 US gallbladder Stat 05/30/21 07:25 US upper EUS PACS images Routine 05/30/21 07:30 FL ERCP biliary ductal Routine 05/30/21 10:31 FL cholangiogram OR Routine Hospital Course (1) Acute pancreatitis: -presented with gallstone pancreatitis s/p cholecystectomy -pancreatitis resolved - ileus post-op now resolved -Lipase level normal, LFTs have normalized -WBC count was elevated upon presentation and is now normal-dcd abx -continue low fat diet (2) Ileus: secondary to gallstone pancreatitis and recent surgery-now resolved abd pain much improved, passing a lot of flatus, no BM continue docusate encouraged ambulation to continue after discharge tolerating regular diet, no nausea (3) Elevated LFTs: normalized, 2/2 gallstones ERCP unsuccessful due to edema intraop cholangiogram negative (4) Cholelithiasis: -Without associated acute cholecystitis. Patient did not have any evidence of cholecystitis on right upper quadrant ultrasound but there is reports of bilious ascites on her operative report -I suspect her white blood cell count was reactive upon presentation and it is now normal -Was placed on Zosyn empirically upfront but then discontinued -now s/p lap mariah -continue po Percocet for pain -post-op limitations given (5) DVT (deep venous thrombosis): History of this. Eliquis held upfront; however, appropriate hemostasis has been achieved. -have since resumed Eliquis hgb stable DVT Proph-ELiqus Dispo-dc to home Total Time Total Time Spent Total Time Spent (In Minutes): 35 min Total Time Includes: Examination of the Patient, Discharge Planning, Medication Reconciliation and Communication With Other Providers (Surgery) Discharge Plan Discharge Items Patient Disposition: Home - Self-Care Reason For Visit: ACUTE PANCREATITIS Discharge Diagnosis: Acute gallstone pancreatitis Condition on Discharge: Good Activity: Per Instructions section Lifting: No more than 5 pounds Bathing Comment: May shower but no bathing/soaking Driving/Machine Use: No driving x 1 week Non-emergency contact: Primary Care Provider and Surgeon Call non-emergency contact if: you have any medication questions, your symptoms worsen, your pain is not controlled, your pain is worsening, your pain is unusual for you, your pain is concerning for you, you have a fever, your temperature is above 101, your wound has increased redness, your wound has increased drainage and your wound pain has increased Follow-up/Referrals: Tyson Stokes, GRAZYNA MORILLO [Physician] - (Follow up in 2 weeks.) PCP,NO [Primary Care Provider] - (Follow up with your PCP within 1-2 weeks. ) Diet: Low Fat Addtl Attending Provider Instructions: Follow up with the Surgeon in 2 weeks. Pending Studies at Discharge: No Stand-Alone Forms: [email or web address], Smoking Cessation Medications and DC Order Prescriptions: New oxycodone-acetaminophen [Percocet] 5-325 mg Tablet 1 - 2 tab PO Q6H PRN (Reason: moderate-severe pain) Qty: 14 RF: 0 docusate sodium 100 mg Capsule 100 mg PO BID Qty: 60 RF: 0 acetaminophen 325 mg capsule 650 mg PO Q6H PRN (Reason: pain) Qty: 30 RF: 0 Continued ascorbic acid (vitamin C) [Vitamin C] 500 mg Tablet 0 mg PO QAM RF: 0 zinc 50 mg Tablet 0 mg PO QAM RF: 0 cholecalciferol (vitamin D3) [Vitamin D3] 25 mcg (1,000 unit) Tablet 0 mcg PO QAM RF: 0 Eliquis 5 mg tablet 5 mg PO BID RF: 0 Discharge Orders: Discharge Order (Routine); Ordered 06/02/21 Ordered By: Iza Mendes Admission Data Admit Date/Time: 05/29/21 17:28 Attending Provider: Iza Mendes Admit Provider: Carlo Sewell Primary Care Provider: PCP,NO Other Providers: Carlo Sewell ; Michael Law ; Tyson Stokes Coding Level of Care Code D/C DAY MANAGEMENT >30 MINS Diagnoses Acute pancreatitis K85.10 Acute pancreatitis complication: unspecified Pancreatitis type: biliary Ileus K56.7 Elevated LFTs R79.89 Cholelithiasis K80.21 Biliary obstruction: with biliary obstruction Cholecystitis presence: without cholecystitis Cholelithiasis location: gallbladder DVT (deep venous thrombosis) I82.409
[2021-06-02] MEDS ORDERED: oxyCODONE/ACETAMINOPHEN 5mg/325mg TAB PO ONE (14:15)
--- NOTE | 2021-06-12 11:54 | Coding Query ---
Your help is needed for correct coding of this account; please clarify if the patients Post-operative Ileus was: ( ) expected out of the surgery ( ) unexpected complication from the surgery ( x )other please specify-ileus secondary to gallstone pancreatitis Thank you Little LANDA
== END 2021-06-02 15:59 | disposition home or self-care (01) | DRG 418 ==
LOC: ED 10:46 → SUATTDRO 17:28 → 2N 17:28 → 3N 05-31 18:22

== ENCOUNTER 2021-06-12 12:01 | Inpatient (IN) ==
[2021-06-12] MEDS ORDERED: ONDANSETRON INJ 2 MG/ML 2 ML VIAL IV STA (15:57)
[2021-06-12] MEDS ORDERED: MoRPHine SULFATE 2 MG/ML CARP IV STA (15:57)
[2021-06-12] MEDS ORDERED: SODIUM CHLORIDE 0.9% 1000ML 500 ML IV ONE (15:57)
[2021-06-12] MEDS ORDERED: ACETAMINOPHEN 1,000 MG/100 ML VIAL IV STA (15:57)
--- NOTE | 2021-06-12 16:01 | Emergency Department Note ---
Impression & Plan Acute upper abdominal pain, Bile leak, S/P cholecystectomy, Nausea ED Provider Note NAME: CHANEL PARK AGE: 61 SEX: F : 1960 ARRIVES VIA: Walk-In INFORMANT: [Patient] ED PROVIDER(S): [Khari Marcial MD] CHIEF COMPLAINT: Abdominal pain HISTORY OF PRESENT ILLNESS: The patient is a 61-year-old female presents to the ER with epigastric abdominal pain and bloating. She has felt poorly since discharge from the hospital 10 days ago. She had her gallbladder removed and she was told that she also had pancreatitis from her gallbladder disease. She states that she cannot eat, he is nauseated. Eating makes her pain worse and sometimes it gets as bad as a 7/10. It takes hours for her abdomen to feel better post eating. She has had no diarrhea. No urinary complaints. No cough or congestion or shortness of breath. No chest pain. She is here today because she is concerned that she may have pancreatitis again. REVIEW OF SYSTEMS: See HPI for pertinent positives and negatives. A total of ten systems were reviewed and were otherwise negative. PMHx/PSHx: See Below SOCIAL HISTORY: See Below. PHYSICAL EXAM: GENERAL: Patient is in no acute distress. HEENT: No acute trauma, normocephalic atraumatic, mucous membranes moist, no nasal congestion, no scleral icterus. NECK: No stridor, no adenopathy, no meningismus, trachea is midline. LUNGS: Clear to auscultation bilaterally, no wheeze, no rhonchi, breath sounds equal. HEART: Without murmurs gallops or rubs, regular rate and rhythm. ABDOMEN: Soft, mild to moderately tender in the epigastrium, bowel sounds positive, no hernias, no peritonitis. EXTREMITIES: No cyanosis or edema, full range of motion of all the joints without pain or difficulty, no signs for acute trauma. NEUROLOGIC: Oriented x 3, no acute motor or sensory deficits, no focal weakness. SKIN: No rash, no jaundice, no diaphoresis. DIFFERENTIAL DIAGNOSIS: Appendicitis, ovarian cyst, abscess, diverticulitis, UTI, obstruction, mesenteric ischemia, aortic pathology, inflammatory bowel disease, renal colic, PUD, pancreatitis, biliary pathology, hernia, volvulus, constipation, as well as other pathologies. EMERGENCY DEPARTMENT COURSE/PROCEDURES: ECG: Indication was abdominal pain. The ECG shows a normal sinus rhythm with a rate of 68. There is no ST ovation, no PVCs. The QTc is 433. Continuous Cardiac Monitoring: An order was placed for continuous cardiac monitoring. The monitor shows a rate of 88 with normal sinus rhythm. MEDICAL DECISION MAKING: There is no leukocytosis or concerning anemia. Platelet count was slightly high at 566. No significant electrolyte abnormality or kidney failure. No jere rning liver enzyme elevation. No evidence for pancreatitis. ECG showed a sinus rhythm, no acute ischemia. Cardiac enzyme testing x1 is not consistent with acute cardiac injury. Urinalysis does not show any evidence for infection. Covid test is pending. Chest film does not show pneumonia or free air. Abdominal and pelvis CT is suggestive of a bile leak from her recent surgery. On exam, the patient was tender in the upper abdomen, she had no findings of peritonitis. She was not febrile. The patient received IV saline for hydration. She received IV Zofran, IV morphine and IV Tylenol. I did speak with general surgery. The patient is being hospitalized on the medicine service with a surgical consult and likely a GI consult. Further work- up in the hospital is warranted. The patient is aware of her findings, case management has been involved. The on-call hospitalist was consulted. Past Med/Surg History Medical History DVT (deep venous thrombosis) Surgical History Hx laparoscopic cholecystectomy (05/30/21) Laparoscopic Cholecystectomy with cholangiogram Dr. 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 Beliefs That Will Affect Care: None Current Living Situation: Spouse Feels Safe at Home: Yes Assistive Devices: None Allergies Allergies Allergy/AdvReac Type Severity Reaction Status Date / Time No Known Allergies Allergy Unverified 06/12/21 15:44 Home Meds Home Medications Medication Instructions Recorded Confirmed apixaban 5 mg tablet (Eliquis) 5 mg PO BID 05/29/21 06/12/21 ascorbic acid (vitamin C) 500 mg 0 mg PO QAM 05/29/21 06/12/21 tablet (Vitamin C) cholecalciferol (vitamin D3) 25 0 mcg PO QAM 05/29/21 06/12/21 mcg (1,000 unit) tablet (Vitamin D3) zinc 50 mg tablet 0 mg PO QAM 05/29/21 06/12/21 Previous Rx's Medication Instructions Recorded acetaminophen 325 mg capsule 650 mg PO Q6H PRN #30 cap 06/02/21 docusate sodium 100 mg capsule 100 mg PO BID #60 cap 06/02/21 Results & Data (ED) Vital Signs Vital Signs - 24 hr 06/12/21 12:05 06/12/21 17:30 Temperature 36.8 C Temperature Source Temporal Artery Scan Pulse Rate 88 Pulse Rate [Apical] 73 Pulse Rhythm [Apical] Regular Pulse Strength [Apical] Normal Respiratory Rate 18 17 Respiratory Effort / Characteristics Non-Labored Respiratory Depth Normal Respiratory Pattern Regular Blood Pressure 161/87 H Blood Pressure [Left Arm] 135/84 Blood Pressure Mean 111 Blood Pressure Mean [Left Arm] 101 Pulse Oximetry 97 96 Oxygen Delivery Method Room Air Room Air Sepsis Recent Fever Within 48 Hours No Sepsis New/Unexplained Change in Mental Status No Sepsis Action Taken by Nursing No Action Required Home Medications Current Medication List: was personally reviewed by me Laboratory Data Attestation: I reviewed the patient's lab results. Result diagrams: 06/12/21 16:00 06/12/21 16:00 Lab Results 06/12/21 06/12/21 06/12/21 Range/Units 16:00 16:00 16:17 WBC 10.08 (4.8-10.8) K/uL RBC 4.04 L (4.2-5.4) M/uL Hgb 12.4 (12.0-16.0) g/dL Hct 37.3 (37-47) % MCV 92.3 (80-100) fL MCH 30.7 (25-34) pg MCHC 33.2 (32-36) g/dL RDW Std Deviation 46.1 (36.4-46.3) fL RDW Coeff of Phillip 13.7 (11.5-14.5) % Plt Count 566 H (130-400) K/uL MPV 9.5 (7.4-10.4) fL Immature Gran % (Auto) 0.4 % Neut % (Auto) 68.9 % Lymph % (Auto) 22.8 % [place] % (Auto) 6.9 % Eos % (Auto) 0.9 % Baso % (Auto) 0.1 % Neut # (Auto) 6.94 H (1.4-6.5) K/uL Lymph # (Auto) 2.30 (1.2-3.4) K/uL [place] # (Auto) 0.70 H (0.11-0.59) K/uL Eos # (Auto) 0.09 (0-0.5) K/uL Baso # (Auto) 0.01 (0-0.2) K/uL Immature Gran # (Auto) 0.04 H (0.00-0.02) K/uL Sodium 138 (136-145) mmol/L Potassium 3.5 (3.5-5.1) mmol/L Chloride 103 (98-107) mmol/L Carbon Dioxide 31 (21-32) mmol/L Anion Gap 4.0 (3-11) BUN 8 (7-18) mg/dl Creatinine 0.76 (0.6-1.2) mg/dl Est Cr Clr Drug Dosing 73.4 ml/min Est GFR ( Amer) 97.4 ml/min Est GFR (Non-Af Amer) 84.1 ml/min BUN/Creatinine Ratio 10.9 (10-20) Glucose 85 (70-99) mg/dl Calcium 9.1 (8.5-10.1) mg/dl Total Bilirubin 0.5 (0.2-1) mg/dl AST 23 (15-37) U/L ALT 16 (12-78) U/L Alkaline Phosphatase 106 (45-117) U/L Troponin I < 0.015 (0-0.045) ng/ml Total Protein 7.0 (6.4-8.2) gm/dl Albumin 2.5 L (3.4-5.0) gm/dl Globulin 4.5 H (2.5-4.0) gm/dl Albumin/Globulin Ratio 0.6 L (0.9-2) Lipase 193 (73-393) U/L Urine Color Dark Yellow Urine Appearance Clear (Clear) Urine pH 5.5 (4.5-7.5) Ur Specific [place] 1.019 (1.000-1.030) Urine Protein Negative (Negative) Urine Glucose (UA) Negative (Negative) Urine Ketones Negative (Negative) Urine Blood Negative (Negative) Urine Nitrite Negative (Negative) Urine Bilirubin Negative (Negative) Urine Urobilinogen Negative (Negative) Ur Leukocyte Esterase Negative (Negative) COVID-19 Eval Order 06/12/21 Range/Units 18:15 WBC (4.8-10.8) K/uL RBC (4.2-5.4) M/uL Hgb (12.0-16.0) g/dL Hct (37-47) % MCV (80-100) fL MCH (25-34) pg MCHC (32-36) g/dL RDW Std Deviation (36.4-46.3) fL RDW Coeff of Phillip (11.5-14.5) % Plt Count (130-400) K/uL MPV (7.4-10.4) fL Immature Gran % (Auto) % Neut % (Auto) % Lymph % (Auto) % [place] % (Auto) % Eos % (Auto) % Baso % (Auto) % Neut # (Auto) (1.4-6.5) K/uL Lymph # (Auto) (1.2-3.4) K/uL [place] # (Auto) (0.11-0.59) K/uL Eos # (Auto) (0-0.5) K/uL Baso # (Auto) (0-0.2) K/uL Immature Gran # (Auto) (0.00-0.02) K/uL Sodium (136-145) mmol/L Potassium (3.5-5.1) mmol/L Chloride (98-107) mmol/L Carbon Dioxide (21-32) mmol/L Anion Gap (3-11) BUN (7-18) mg/dl Creatinine (0.6-1.2) mg/dl Est Cr Clr Drug Dosing ml/min Est GFR ( Amer) ml/min Est GFR (Non-Af Amer) ml/min BUN/Creatinine Ratio (10-20) Glucose (70-99) mg/dl Calcium (8.5-10.1) mg/dl Total Bilirubin (0.2-1) mg/dl AST (15-37) U/L ALT (12-78) U/L Alkaline Phosphatase (45-117) U/L Troponin I (0-0.045) ng/ml Total Protein (6.4-8.2) gm/dl Albumin (3.4-5.0) gm/dl Globulin (2.5-4.0) gm/dl Albumin/Globulin Ratio (0.9-2) Lipase (73-393) U/L Urine Color Urine Appearance (Clear) Urine pH (4.5-7.5) Ur Specific [place] (1.000-1.030) Urine Protein (Negative) Urine Glucose (UA) (Negative) Urine Ketones (Negative) Urine Blood (Negative) Urine Nitrite (Negative) Urine Bilirubin (Negative) Urine Urobilinogen (Negative) Ur Leukocyte Esterase (Negative) COVID-19 Eval Order Covid19 at [facility] [place] Administered Medications Discontinued Medications Acetaminophen (Ofirmev) 1,000 mg in 100 mls @ 400 mls/hr IV NOW STA Stop: 06/12/21 16:11 Last Infusion: 06/12/21 17:28 Dose: 0 mls/hr Documented by: [id number] Admin: 06/12/21 16:14 Dose: 400 mls/hr Documented by: [id number] Sodium Chloride (Nss 1000ml) 500 mls @ 999 mls/hr IV .Q31M ONE Stop: 06/12/21 16:27 Last Infusion: 06/12/21 17:27 Dose: 0 mls/hr Documented by: [id number] Admin: 06/12/21 16:14 Dose: 999 mls/hr Documented by: [id number] Ioversol (Optiray 320 100ml) 93 ml IV ONCE ONE Stop: 06/12/21 17:13 Last Admin: 06/12/21 17:12 Dose: 93 ml Documented by: [id number] Morphine Sulfate (Morphine Sulfate 2 Mg/Ml Carp) 2 mg IV NOW STA Stop: 06/12/21 15:58 Last Admin: 06/12/21 16:10 Dose: 2 mg Documented by: [id number] Ondansetron HCl (Ondansetron Inj 2 Mg/Ml 2 Ml Vial) 4 mg IV NOW STA Stop: 06/12/21 15:58 Last Admin: 06/12/21 16:10 Dose: 4 mg Documented by: [id number] Imaging Data Radiologist's Impression: Abdomen/Pelvis CT 06/12/21 15:57 CT abd pelvis IV con only CLINICAL HISTORY: epig pain, recent gb surgery and pancreatitis TECHNIQUE: Helical axial images of the abdomen and pelvis were obtained and displayed. Automated dose lowering techniques and/or adjustment according to patient size were utilized for this exam. This exam was performed with intravenous contrast. COMPARISON: None available at the time of this dictation. FINDINGS: Lower chest: Bibasilar atelectasis is seen. Liver: Hepatic steatosis is noted. Gallbladder and biliary tree: The gallbladder is surgically absent. There is a large rim-enhancing fluid collection in the gallbladder fossa extending inferiorly into the right paracolic gutter. A component extends medially under the duodenum as well. There is prominence of the intrahepatic and extrahepatic bile ducts which may be physiologic. Pancreas: Partial fatty replacement of the pancreas is seen. Rim-enhancing fluid collection is seen anterior to the pancreas. Spleen: Unremarkable. Adrenals: Unremarkable. Kidneys and ureters: Unremarkable. Bladder: Unremarkable. Reproductive organs: Unremarkable. Bowel: Diverticulosis is seen without evidence of diverticulitis. The appendix is unremarkable. A hiatal hernia is seen. Lymph nodes Retroperitoneal: Unremarkable. Mesenteric: Unremarkable. Pelvic: Unremarkable. Peritoneum: Normal Vessels: Atherosclerotic calcifications are seen. Abdominal wall: Unremarkable. Bones: Degenerative changes in the visualized spine. IMPRESSION: 1. No active pancreatic inflammatory changes are definitely seen. 2. Status post recent cholecystectomy. 3. Multiple rim-enhancing fluid collections, most prominent anterior to the pancreas and in the gallbladder fossa. These may represent pseudocysts, however in the setting of recent cholecystectomy, abscess and/or biliary leak cannot be excluded. 4. Diverticulosis without diverticulitis. ACT 112: Negative or not required by law. Electronically signed by: Young Turner M.D. 06/12/2021 5:50 PM Chest X-Ray 06/12/21 15:58 XR chest 1V portable CLINICAL HISTORY: abd pain TECHNIQUE: Single frontal radiograph of the chest was obtained. Comparison: None available at the time of this dictation. FINDINGS: No lines and tubes are seen. The cardiomediastinal silhouette is normal. The lungs are clear. No evidence of pleural effusion or pneumothorax. IMPRESSION: No acute chest disease. ACT 112: Negative or not required by law. Electronically signed by: Young Turner M.D. 06/12/2021 4:48 PM Discharge Plan Visit Data Chief Complaint: Abdominal Pain Stated Complaint: ABDOMINAL PAIN, CAN'T EAT ED Provider: Khari Marcial Discharge Problem: Acute upper abdominal pain, Bile leak, S/P cholecystectomy, Nausea Patient Disposition: Admitted As Inpatient Condition: Fair Forms Stand Alone Forms: [facility] Prescriptions Prescriptions: No Action ascorbic acid (vitamin C) [Vitamin C] 500 mg Tablet 0 mg PO QAM RF: 0 zinc 50 mg Tablet 0 mg PO QAM RF: 0 cholecalciferol (vitamin D3) [Vitamin D3] 25 mcg (1,000 unit) Tablet 0 mcg PO QAM RF: 0 Eliquis 5 mg tablet 5 mg PO BID RF: 0 docusate sodium 100 mg Capsule 100 mg PO BID Qty: 60 RF: 0 acetaminophen 325 mg capsule 650 mg PO Q6H PRN (Reason: pain) Qty: 30 RF: 0 Referrals Referrals: PCP,NO [Primary Care Provider] -
[2021-06-12 16:13] LABS: Basophils # (auto) 0.01 K/uL (0-0.2); Basophils % (auto) 0.1 %; Eosinophils # (auto) 0.09 K/uL (0-0.5); Eosinophils % (auto) 0.9 %; Hematocrit (blood only) 37.3 % (37-47); Hemoglobin 12.4 g/dL (12.0-16.0); Immature Granulocytes # (auto) 0.04 K/uL (0.00-0.02); Immature Granulocytes % (auto) 0.4 %; Lymphocytes % (auto) 22.8 %; Mean Corpuscular Hemoglobin 30.7 pg (25-34); Mean Corpuscular Hgb Conc 33.2 g/dL (32-36); Mean Corpuscular Volume 92.3 fL (80-100); Mean Platelet Volume 9.5 fL (7.4-10.4); Monocytes % (auto) 6.9 %; Neutrophils # (auto) 6.94 K/uL (1.4-6.5); Neutrophils % (auto) 68.9 %; Platelet Count 566 K/uL (130-400); RDW Coefficient of Variation 13.7 % (11.5-14.5); RDW Standard Deviation 46.1 fL (36.4-46.3); Red Blood Count 4.04 M/uL (4.2-5.4); White Blood Count 10.08 K/uL (4.8-10.8)
[2021-06-12 16:31] LABS: Alanine Aminotransferase 16 U/L (12-78); Albumin Level 2.5 gm/dl (3.4-5.0); Aspartate Aminotransferase 23 U/L (15-37); BUN Creatinine Ratio 10.9 (10-20); Blood Urea Nitrogen 8 mg/dl (7-18); Calcium 9.1 mg/dl (8.5-10.1); Carbon Dioxide 31 mmol/L (21-32); Chloride 103 mmol/L (98-107); Creatinine Clr Calc Pharmacy 73.4 ml/min; Est GFR (African American) 97.4 ml/min; Est GFR (Non-African American) 84.1 ml/min; Glucose 85 mg/dl (70-99); Lipase 193 U/L (73-393); Potassium 3.5 mmol/L (3.5-5.1); Sodium 138 mmol/L (136-145)
[2021-06-12 16:35] LABS: Appearance Urine Clear (Clear); Bilirubin Urine Negative (Negative); Blood Urine Negative (Negative); Color Urine Dark Yellow; Glucose Urine UA Negative (Negative); Ketones Urine Negative (Negative); Leukocyte Esterase Urine Negative (Negative); Nitrite Urine Negative (Negative); Protein Urine Negative (Negative); Specific Gravity Urine 1.019 (1.000-1.030); Urobilinogen Urine Negative (Negative); pH Urine 5.5 (4.5-7.5)
[2021-06-12 16:36] LABS: Albumin Globulin Ratio 0.6 (0.9-2); Alkaline Phosphatase 106 U/L (45-117); Bilirubin,Total 0.5 mg/dl (0.2-1); Globulin 4.5 gm/dl (2.5-4.0); Troponin I < 0.015 ng/ml (0-0.045)
--- NOTE | 2021-06-12 16:50 | XRay Report ---
XR chest 1V portable CLINICAL HISTORY: abd pain TECHNIQUE: Single frontal radiograph of the chest was obtained. Comparison: None available at the time of this dictation. FINDINGS: No lines and tubes are seen. The cardiomediastinal silhouette is normal. The lungs are clear. No evid ence of pleural effusion or pneumothorax. IMPRESSION: No acute chest disease. ACT 112: Negative or not required by law. Electronically signed by: Young Turner M.D. 06/12/2021 4:48 PM
--- NOTE | 2021-06-12 17:01 | History & Physical Report ---
Date of Service June 12, 2021 Assessment & Plan (1) Bile leak: Plan: Abdominal pain 2/2 ? Postop bile leak ddx includes post op abscess Status post laparoscopic cholecystectomy 05/30/2021 for cholecystitis/choledocholithiasis/pancreatitis No leukocytosis Lipase 193 Troponin negative Bilirubin normal, AST normal, ALT normal, alkaline phosphatase normal UA bland Chest x-ray no acute findings CTabdomen: No active pancreatic inflammatory changes are definitely seen. Status post recent cholecystectomy. Multiple rim-enhancing fluid collections, most prominent anterior to the pancreas and in the gallbladder fossa. These may represent pseudocysts, however in the setting of recent cholecystectomy, abscess and/or biliary leak cannot be excluded. Diverticulosis without diverticulitis. Discussed with general surgery by ER provider. Recommended admit to medicine, consult surgery and GI. Consults placed. Creatinine at baseline, 0.76 at admission Pain control with acetaminophen 500 mg every 4 hours scheduled Breakthrough pain control with hydromorphone 0.25-0.5 mg every 4 hours scaled NSS plus KCl 20 M EQ 80 cc/h while p.o. improving Nausea control with Zofran every 6 hours IV as needed, EKG 05/29/2021 with normal QT Follow clinically Continue empiric Zosyn (2) Hx laparoscopic cholecystectomy: Plan: - see above (3) DVT (deep venous thrombosis): Plan: History of DVT DVT October 2020, near completed course Hold pending surgical eval Plan: DVT PPx: On Eliquis prior to admission, held pending surgical evaluation Diet: N.p.o. Decision: Medical/surgical CODE STATUS: Full code History of Present Illness Chief Complaint: Abdominal Pain Primary Care Provider: NO PCP Beverly Rodriguez is a 61-year-old female with a past medical history of ileus, DVT, pancreatitis, and cholelithiasis with a recent admission to [facility] from / for acute pancreatitis 2/2 Coledocolithiasis status post lap cholecystectomy. She presented to the emergency room with continued epigastric abdominal pain and bloating feeling poorly since discharge at that time. She reports she is unable to eat, has had persistent nausea, increasing abdominal pain with meals since discharge. Seen at the bedside with her katiee. Reports a few weeks ago went ot the ER in [facility] for pain the back and was found to have a hiatal hernia and to followup with gastroenterology. She reports her pain worsened and she developed nausea for one day, then was OK until the following Tuesday when she felt ill again and presented to [facility]. She was found at that time to have gallstones and pancreatitis and was addmited and had a lap mariah. After that had regular healing soreness, but then her pain persisted. OVer the next week could not tolerate much food at all, and no matter what she tried she had increased pain in her stomach and mid/right side which would last for hours after trying ot eat. Rarely pain would radiate to R shoulder or belly button. Was trying ot eat and keep up strenght, 'but I'd pay for it anytime I ate.' 2x loose BMs, 1x normal BM in the last week. 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 Hasn't gone in last 2-3 days. NO vomiting, +nausea with meals. No fevers/chills/sweats, but is generally cold all the time -Chest pain, -chest pressure, - shortness of breath Ibuprofen helps the pain a little bit. Hx DVT in December 2020 on eliquis, no f/u scan of legs. Last took last evening. Medical History: Reviewed Medications: Reviewed Surgical History: Reviewed Allergies: Reviewed Social History:Former smoker 1ppd x40 years, quit and hasn't smoked since last admission. No alcohol, no med marijuana, no rec drug use. Code Status: Full Code Allergies Allergy/AdvReac Type Severity Reaction Status Date / Time No Known Allergies Allergy Unverified 06/12/21 15:44 Home Medications Medication Instructions Recorded Confirmed Type apixaban 5 mg tablet (Eliquis) 5 mg PO BID 05/29/21 06/12/21 History ascorbic acid (vitamin C) 500 mg 0 mg PO QAM 05/29/21 06/12/21 History tablet (Vitamin C) cholecalciferol (vitamin D3) 25 0 mcg PO QAM 05/29/21 06/12/21 History mcg (1,000 unit) tablet (Vitamin D3) zinc 50 mg tablet 0 mg PO QAM 05/29/21 06/12/21 History acetaminophen 325 mg capsule 650 mg PO Q6H PRN #30 cap 10/19/21 10/29/21 Rx docusate sodium 100 mg capsule 100 mg PO BID #60 cap 06/02/21 06/12/21 Rx Past Med/Surg History Medical History (Updated 06/12/21 @ 18:38 by Corbin Briscoe MD) DVT (deep venous thrombosis) Surgical History (Updated 06/02/21 @ 13:02 by Tyson Stokes DO, FACS) Hx laparoscopic cholecystectomy (05/30/21) Laparoscopic Cholecystectomy with cholangiogram Dr. Stokes 05/30/21 Social History Smoking Status: Never smoker Tobacco Type: Cigarettes Cigarettes Per Day: 15; Hx Alcohol Use: No Hx Substance Use: No Preferred Language: Venezuelan Communication Ability: Effective Lens Inserter Required: No Beliefs That Will Affect Care: None Current Living Situation: Spouse Feels Safe at Home: Yes Assistive Devices: None Review of Systems Review of Systems: All systems reviewed & are unremarkable except as noted in HPI & below Physical Exam Physical Exam: General: A&Ox3. NAD. Cooperative. HEENT: Atraumatic, normocephalic. Pulm: CTAB A&P. -wheezes, -rales, -rhonchi. Symmetrical chest rise. No increase work of breathing. No respiratory distress. Cardiac: RRR, -mrg. Radial pulses intact and symmetrical. Abdominal: Surgical incisions intact, well healing without discharge. On exam nontender, no rebound, soft. BS present. Ext: Warm, dry. No leg swelling or asymmetry. Results & Data Results & Data ([facility]) Vital Signs (Past 12 Hours) Vital Signs Temp Pulse Resp BP Pulse Ox 06/12/21 12:05 36.8 C 88 18 161/87 H 97 PG Care Time/CCT Total # of Minutes Spent Total Time Spent with Patient: Total time spent is greater than 50% in coordination of care (as documented) at patient's floor/unit and/or counseling patient: Coding Level of Care Code 01438 Initial Inpt Care Lvl 3 Diagnoses Bile leak K83.9 Hx laparoscopic cholecystectomy Z90.49 DVT (deep venous thrombosis) I82.409
[2021-06-12] MEDS ORDERED: OPTIRAY 320 100ml IV ONE (17:12)
--- NOTE | 2021-06-12 17:51 | CT Scan Report ---
CT abd pelvis IV con only CLINICAL HISTORY: epig pain, recent gb surgery and pancreatitis TECHNIQUE: Helical axial images of the abdomen and pelvis were obtained and displayed. Automated dose lowering techniques and/or adjustment according to patient size were utilized for this exam. This e xam was performed with intravenous contrast. COMPARISON: None available at the time of this dictation. FINDINGS: Lower chest: Bibasilar atelectasis is seen. Liver: Hepatic steatosis is noted. Gallbladder and biliary tree: The gallbladder is surgically absent. There is a large rim-enhancing fl uid collection in the gallbladder fossa extending inferiorly into the right paracolic gutter. A compo nent extends medially under the duodenum as well. There is prominence of the intrahepatic and extrahe patic bile ducts which may be physiologic. Pancreas: Partial fatty replacement of the pancreas is seen. Rim-enhancing fluid collection is seen a nterior to the pancreas. Spleen: Unremarkable. Adrenals: Unremarkable. Kidneys and ureters: Unremarkable. Bladder: Unremarkable. Reproductive organs: Unremarkable. Bowel: Diverticulosis is seen without evidence of diverticulitis. The appendix is unremarkable. A hia teresa hernia is seen. Lymph nodes Retroperitoneal: Unremarkable. Mesenteric: Unremarkable. Pelvic: Unremarkable. Peritoneum: Normal Vessels: Atherosclerotic calcifications are seen. Abdominal wall: Unremarkable. Bones: Degenerative changes in the visualized spine. IMPRESSION: 1. No active pancreatic inflammatory changes are definitely seen. 2. Status post recent cholecystectomy. 3. Multiple rim-enhancing fluid collections, most prominent anterior to the pancreas and in the gall bladder fossa. These may represent pseudocysts, however in the setting of recent cholecystectomy, abs cess and/or biliary leak cannot be excluded. 4. Diverticulosis without diverticulitis. ACT 112: Negative or not required by law. Electronically signed by: Young Turner M.D. 06/12/2021 5:50 PM
--- NOTE | 2021-06-12 20:04 | Surgery Consultation ---
Date of Consultation June 12, 2021 Assessment & Plan (1) Bile leak: (2) Hx laparoscopic cholecystectomy: 61-year-old woman 10 days status post lap mariah with rim-enhancing fluid collection in the gallbladder fossa and around the pancreas. Differential diagnosis includes bile leak, developing abscess, pancreatic pseudocysts. Her labs are all normal including white blood cell count and LFTs. She has some upper abdominal pain, however not quite typical for bile leak or abscess. She w ill be admitted to the hospital placed on IV antibiotics. We will obtain a HIDA scan for further evaluation of possible bile leak. We will have gastroenterology see her for possible ERCP tomorrow. I will follow along. History of Present Illness Reason for Consultation: Possible bile leak status post lap mariah Requesting Physician: Corbin Alvarez MD Attending Physician: Corbin Alvarez MD History of Present Illness 61-year-old woman approximately 10 days status post lap mariah following biliary pancreatitis. An ERCP was attempted prior to the lap mariah which was unsuccessf ul in cannulating the ampulla. The resulting lap mariah was accompanied by cholangiogram which demonstrated flow into the duodenum. There were no signs of stones in the common bile duct. Since she has been home, she has had significant bloating and crampy pain in the right and left upper quadrants. She has nausea and early satiety. She is not able to eat a lot of food. She subjectively states she has had fevers. She denies obstipation or constipation. She denies diarrhea. She denies jaundice, shortness of breath, chest pain, dark urine. Allergies Allergy/AdvReac Type Severity Reaction Status Date / Time No Known Allergies Allergy Unverified 06/12/21 15:44 Home Medications Medication Instructions Recorded Confirmed Type apixaban 5 mg tablet (Eliquis) 5 mg PO BID 05/29/21 06/12/21 History ascorbic acid (vitamin C) 500 mg 0 mg PO QAM 05/29/21 06/12/21 History tablet (Vitamin C) cholecalciferol (vitamin D3) 25 0 mcg PO QAM 05/29/21 06/12/21 History mcg (1,000 unit) tablet (Vitamin D3) zinc 50 mg tablet 0 mg PO QAM 05/29/21 06/12/21 History acetaminophen 325 mg capsule 650 mg PO Q6H PRN #30 cap 06/02/21 06/12/21 Rx docusate sodium 100 mg capsule 100 mg PO BID #60 cap 06/02/21 06/12/21 Rx Patient History Medical History DVT (deep venous thrombosis) Surgical History Hx laparoscopic cholecystectomy (05/30/21) Laparoscopic Cholecystectomy with cholangiogram Dr. Stokes 05/30/21 Social History Smoking Status: Never smoker Tobacco Type: Cigarettes Cigarettes Per Day: 15; Hx Alcohol Use: No Hx Substance Use: No Preferred Language: Haitian Communication Ability: Effective Fitness Consultant Required: No Beliefs That Will Affect Care: None Current Living Situation: Spouse Feels Safe at Home: Yes Assistive Devices: None Review of Systems Review of Systems: All systems reviewed & are unremarkable except as noted in HPI & below Physical Exam Constitutional: WD/WN, vitals as above Eyes: PERRL, conjunctivae normal, anicteric sclerae Neck: trachea midline, no thyromegaly Respiratory: normal respiratory effort; no respiratory distress and no labored breathing Cardiovascular: Rate/Rhythm: regular rate and regular rhythm Gastrointestinal (Abdomen): Inspection/Auscultation: abdomen normal to inspection and + abdominal surgical incision (Incisions clean, dry, intact, healing well); abdomen not distended Percussion/Palpation: + abdomen tender (Tender right upper left upper quadrant) and abdomen soft; no guarding and abdomen not rigid Musculoskeletal: Extremities: no cyanosis and no clubbing Skin: no rashes, warm and dry Psychiatric: A+Ox3, euthymic affect Results & Data ([facility]) Vital Signs (Past 12 Hours) Vital Signs Temp Pulse Pulse Resp BP BP Pulse Ox 06/12/21 19:49 74 17 135/84 100 06/12/21 17:30 73 17 135/84 96 06/12/21 12:05 36.8 C 88 18 161/87 H 97 Laboratory Results 06/12/21 06/12/21 06/12/21 Range/Units 18:15 18:15 16:17 WBC (4.8-10.8) K/uL RBC (4.2-5.4) M/uL Hgb (12.0-16.0) g/dL Hct (37-47) % MCV (80-100) fL MCH (25-34) pg MCHC (32-36) g/dL RDW Std Deviation (36.4-46.3) fL RDW Coeff of Phillip (11.5-14.5) % Plt Count (130-400) K/uL MPV (7.4-10.4) fL Immature Gran % (Auto) % Neut % (Auto) % Lymph % (Auto) % Logan % (Auto) % Eos % (Auto) % Baso % (Auto) % Neut # (Auto) (1.4-6.5) K/uL Lymph # (Auto) (1.2-3.4) K/uL Logan # (Auto) (0.11-0.59) K/uL Eos # (Auto) (0-0.5) K/uL Baso # (Auto) (0-0.2) K/uL Immature Gran # (Auto) (0.00-0.02) K/uL Sodium (136-145) mmol/L Potassium (3.5-5.1) mmol/L Chloride (98-107) mmol/L Carbon Dioxide (21-32) mmol/L Anion Gap (3-11) BUN (7-18) mg/dl Creatinine (0.6-1.2) mg/dl Est Cr Clr Drug Dosing ml/min Est GFR ( Amer) ml/min Est GFR (Non-Af Amer) ml/min BUN/Creatinine Ratio (10-20) Glucose (70-99) mg/dl Calcium (8.5-10.1) mg/dl Total Bilirubin (0.2-1) mg/dl AST (15-37) U/L ALT (12-78) U/L Alkaline Phosphatase (45-117) U/L Troponin I (0-0.045) ng/ml Total Protein (6.4-8.2) gm/dl Albumin (3.4-5.0) gm/dl Globulin (2.5-4.0) gm/dl Albumin/Globulin Ratio (0.9-2) Lipase (73-393) U/L Urine Color Dark Yellow Urine Appearance Clear (Clear) Urine pH 5.5 (4.5-7.5) Ur Specific [place] 1.019 (1.000-1.030) Urine Protein Negative (Negative) Urine Glucose (UA) Negative (Negative) Urine Ketones Negative (Negative) Urine Blood Negative (Negative) Urine Nitrite Negative (Negative) Urine Bilirubin Negative (Negative) Urine Urobilinogen Negative (Negative) Ur Leukocyte Esterase Negative (Negative) COVID-19 Eval Order Covid19 at [facility] SARS-CoV-2 (PCR) NEGATIVE (Negative) 06/12/21 06/12/21 Range/Units 16:00 16:00 WBC 10.08 (4.8-10.8) K/uL RBC 4.04 L (4.2-5.4) M/uL Hgb 12.4 (12.0-16.0) g/dL Hct 37.3 (37-47) % MCV 92.3 (80-100) fL MCH 30.7 (25-34) pg MCHC 33.2 (32-36) g/dL RDW Std Deviation 46.1 (36.4-46.3) fL RDW Coeff of Phillip 13.7 (11.5-14.5) % Plt Count 566 H (130-400) K/uL MPV 9.5 (7.4-10.4) fL Immature Gran % (Auto) 0.4 % Neut % (Auto) 68.9 % Lymph % (Auto) 22.8 % Logan % (Auto) 6.9 % Eos % (Auto) 0.9 % Baso % (Auto) 0.1 % Neut # (Auto) 6.94 H (1.4-6.5) K/uL Lymph # (Auto) 2.30 (1.2-3.4) K/uL Logan # (Auto) 0.70 H (0.11-0.59) K/uL Eos # (Auto) 0.09 (0-0.5) K/uL Baso # (Auto) 0.01 (0-0.2) K/uL Immature Gran # (Auto) 0.04 H (0.00-0.02) K/uL Sodium 138 (136-145) mmol/L Potassium 3.5 (3.5-5.1) mmol/L Chloride 103 (98-107) mmol/L Carbon Dioxide 31 (21-32) mmol/L Anion Gap 4.0 (3-11) BUN 8 (7-18) mg/dl Creatinine 0.76 (0.6-1.2) mg/dl Est Cr Clr Drug Dosing 73.4 ml/min Est GFR ( Amer) 97.4 ml/min Est GFR (Non-Af Amer) 84.1 ml/min BUN/Creatinine Ratio 10.9 (10-20) Glucose 85 (70-99) mg/dl Calcium 9.1 (8.5-10.1) mg/dl Total Bilirubin 0.5 (0.2-1) mg/dl AST 23 (15-37) U/L ALT 16 (12-78) U/L Alkaline Phosphatase 106 (45-117) U/L Troponin I < 0.015 (0-0.045) ng/ml Total Protein 7.0 (6.4-8.2) gm/dl Albumin 2.5 L (3.4-5.0) gm/dl Globulin 4.5 H (2.5-4.0) gm/dl Albumin/Globulin Ratio 0.6 L (0.9-2) Lipase 193 (73-393) U/L Urine Color Urine Appearance (Clear) Urine pH (4.5-7.5) Ur Specific [place] (1.000-1.030) Urine Protein (Negative) Urine Glucose (UA) (Negative) Urine Ketones (Negative) Urine Blood (Negative) Urine Nitrite (Negative) Urine Bilirubin (Negative) Urine Urobilinogen (Negative) Ur Leukocyte Esterase (Negative) COVID-19 Eval Order SARS-CoV-2 (PCR) (Negative) Diagnostic Findings CT abd pelvis IV con only CLINICAL HISTORY: epig pain, recent gb surgery and pancreatitis TECHNIQUE: Helical axial images of the abdomen and pelvis were obtained and displayed. Automated dose lowering techniques and/or adjustment according to patient size were utilized for this exam. This exam was performed with intravenous contrast. COMPARISON: None available at the time of this dictation. FINDINGS: Lower chest: Bibasilar atelectasis is seen. Liver: Hepatic steatosis is noted. Gallbladder and biliary tree: The gallbladder is surgically absent. There is a large rim-enhancing fluid collection in the gallbladder fossa extending inferiorly into the right paracolic gutter. A component extends medially under the duodenum as well. There is prominence of the intrahepatic and extrahepatic bile ducts which may be physiologic. Pancreas: Partial fatty replacement of the pancreas is seen. Rim-enhancing fluid collection is seen anterior to the pancreas. Spleen: Unremarkable. Adrenals: Unremarkable. Kidneys and ureters: Unremarkable. Bladder: Unremarkable. Reproductive organs: Unremarkable. Bowel: Diverticulosis is seen without evidence of diverticulitis. The appendix is unremarkable. A hiatal hernia is seen. Lymph nodes Retroperitoneal: Unremarkable. Mesenteric: Unremarkable. Pelvic: Unremarkable. Peritoneum: Normal Vessels: Atherosclerotic calcifications are seen. Abdominal wall: Unremarkable. Bones: Degenerative changes in the visualized spine. IMPRESSION: 1. No active pancreatic inflammatory changes are definitely seen. 2. Status post recent cholecystectomy. 3. Multiple rim-enhancing fluid collections, most prominent anterior to the pancreas and in the gallbladder fossa. These may represent pseudocysts, however in the setting of recent cholecystectomy, abscess and/or biliary leak cannot be excluded. 4. Diverticulosis without diverticulitis.
[2021-06-12] MEDS ORDERED: ACETAMINOPHEN 325 MG TAB PO PRN (21:01)
[2021-06-12] MEDS ORDERED: HYDROmorphone INJ 0.5 MG/0.5 ML SYR IV PRN ×2 (21:01)
[2021-06-12 21:51] LABS: Partial Thromboplastin Ratio 0.9; Partial Thromboplastin Time 24.5 Seconds (21.0-31.0); Prothrombin Time 10.6 Seconds (9.0-12.0)
[2021-06-12] MEDS ORDERED: ONDANSETRON INJ 2 MG/ML 2 ML VIAL IV PRN (21:59)
[2021-06-12] MEDS ORDERED: ONDANSETRON INJ 2 MG/ML 2 ML VIAL ONE (22:40)
[2021-06-13 07:25] LABS: Basophils # (auto) 0.01 K/uL (0-0.2); Basophils % (auto) 0.1 %; Eosinophils # (auto) 0.15 K/uL (0-0.5); Eosinophils % (auto) 1.9 %; Immature Granulocytes # (auto) 0.04 K/uL (0.00-0.02); Immature Granulocytes % (auto) 0.5 %; Lymphocytes # (auto) 2.02 K/uL (1.2-3.4); Lymphocytes % (auto) 25.3 %; Mean Corpuscular Hemoglobin 30.1 pg (25-34); Mean Corpuscular Hgb Conc 32.4 g/dL (32-36); Mean Corpuscular Volume 92.9 fL (80-100); Mean Platelet Volume 9.2 fL (7.4-10.4); Monocytes # (auto) 0.74 K/uL (0.11-0.59); Monocytes % (auto) 9.3 %; Neutrophils # (auto) 5.01 K/uL (1.4-6.5); Neutrophils % (auto) 62.9 %; Platelet Count 492 K/uL (130-400); RDW Coefficient of Variation 13.7 % (11.5-14.5); RDW Standard Deviation 46.2 fL (36.4-46.3); Red Blood Count 3.66 M/uL (4.2-5.4); White Blood Count 7.97 K/uL (4.8-10.8)
[2021-06-13 07:54] LABS: BUN Creatinine Ratio 14.7 (10-20); Calcium 8.6 mg/dl (8.5-10.1); Est GFR (African American) 113.2 ml/min; Est GFR (Non-African American) 97.7 ml/min; Potassium 3.8 mmol/L (3.5-5.1)
[2021-06-13 08:03] LABS: Albumin Globulin Ratio 0.5 (0.9-2); Bilirubin,Total 0.4 mg/dl (0.2-1); Globulin 3.7 gm/dl (2.5-4.0); Total Protein 5.7 gm/dl (6.4-8.2)
--- NOTE | 2021-06-13 08:27 | Hospitalist Progress Note ---
Date of Service June 13, 2021 Assessment & Plan (1) Bile leak: Plan: Beverly Rodriguez is a 61-year-old female with history ofileus, DVT, pancreatitis, and cholelithiasis with a recent admission to [facility] from 110/ for acute pancreatitis 2/2 Coledocolithiasis status post lap cholecystectomy. Presented with abdominal pain, bloating, persistent nausea. Bile leak: Abdominal pain 2/2? Postop bile leak ddx includes post op abscess Status post laparoscopic cholecystectomy 05/30/2021 for cholecystitis/choledocholithiasis/pancreatitis Lipase 193 Troponin negative Bilirubin normal, AST normal, ALT normal, alkaline phosphatase normal CTabdomen:No active pancreatic inflammatory changes are definitely seen. Status post recent cholecystectomy. Multiple rim-enhancing fluid collections, most prominent anterior to the pancreas and in the gallbladder fossa. These may represent pseudocysts, however in the setting of recent cholecystectomy, abscess and/or biliary leak cannot be excluded. Diverticulosis without diverticulitis. Pain control with acetaminophen 500 mg every 4 hours scheduled Breakthrough pain control with hydromorphone 0.25-0.5 mg every 4 hours scaled NSS plus KCl 20 M EQ 80 cc/h while NPO Nausea control with Zofran every 6 hours IV as needed, EKG 05/29/2021 with normal QT Follow clinically Continue empiric Zosyn Surgery consult: - HIDA scan is unobtainable this weekend. We will await for gastroenterology recommendations for possible ERCP. GI consulted for possible ERCP Hx laparoscopic cholecystectomy: - see above DVT (deep venous thrombosis): History of DVT DVT October 2020, near completed course Hold pending surgical eval DVT PPx: On Eliquis prior to admission, held pending surgical evaluation Diet: N.p.o. Decision: Medical/surgical CODE STATUS: Full code (2) Hx laparoscopic cholecystectomy: (3) DVT (deep venous thrombosis): Admission and Anticipated Discharge Date Admission Date: June 12, 2021 Supervising Physician Co-Signing Physician Notes I personally examined the patient and verified all valentin points of history and exam, discussed case, and agree with decision making with Dr Thompson. Feeling better. Actually feeling a little bit hungry, although then notes that whenever she has had too much ice chips it starts to cause a degree of nausea. Pain is mostly epigastric, not right upper. But overall feeling much better than before. Vitals noted, in general she is awake and alert pleasant no distress. HEENT normocephalic atraumatic mucous membranes moist. Breathing is unlabored no accessory muscle use good effort. Abdomen is soft she does have epigastric tenderness without guarding rebound or rigidity, benign right upper quadrant no tenderness/guarding/rebound/rigidity. Skin shows no rashes, no pallor or icterus. Abdominal pain/nausea vomitingshe presented mostly with inability to tolerate foodand while she has the nondescript fluid collections on CT, her history and exam are really quite consistent with something along the lines of a stress- induced gastritis, early peptic ulcer disease. While we will definitely have to pay deference to the fluid collections, in discussion with the patient, examining her, and assessing her overall situation, I would like to start empiric aggressive measures for management of a presumed gastritistwice daily H2/PPI, scheduled Carafate, scheduled Zofran, trial of a liquid diet. She e xpresses understanding and agreement with this plan. Abdominal fluid collectionsno fever no white count her CRP is low and reassuringall making an abscess really unlikely, bilirubin alk phos and sp ecialty assessments seem to make a bile leak far less likelyso I suspect whether it is a pseudocyst, or just seroma, it is probably fluid collection that is not going to require interventionpossibly could be part of her pain just simply due to disruption of the surrounding architecture, but if that's the case it's likely to improve as her body adapts. Discussed with patient that antibiotics were not started yet, and given that I'm not seeing a clear and necessary indication, initiating antibiotics at this point would almost certainly commit her to a full course, given that we wouldn't really have a clear point at which to stop. To that end, I proposed watchful waiting, serial exams serial labs, and initiating antibiotics should it become clear that she needs themshe and her daughter both endorse this approachand understand that there is a small but real chance that an infection could ensue with some worsening, but it would be very unlikely to be a massive rapid worsening. To that end we will hold off on antibiotics at this time. holding eliquis till it is clear that no interventions are needed. will then resume. on scds Subjective No acute events overnight. Patient reports pain is well-controlled, only truly bothersome with movement. She denies n/v, CP, palp, SOB, fever, chills. Review of Systems Review of Systems: per subjective Physical Exam Physical Exam: GENERAL: A&Ox3. NAD. CHEST/LUNGS: CTAB A/P. No crackles, wheezes, rales, rhonchi. HEART: RRR. No m/g/r. ABDOMEN: Mildly TTP at RUQ, mild guarding. Nondistended, soft. BS+ x4. SKIN: Warm and dry. No rashes or lesions. PSYCHIATRIC: Euthymic affect, no SI, no pressured speech, no hallucinations NEUROLOGIC: No FND. CN II-XII grossly intact. Results & Data Results & Data ([facility]) Vital Signs (Past 12 Hours) Vital Signs Temp Pulse Pulse Resp BP Pulse Ox 06/13/21 07:25 36.9 C 72 16 114/71 93 06/12/21 21:49 36.9 C 74 16 133/77 95 Resident Activity Tracking Resident Involvement: Resident Care Provided Care Provided: Adult [facility]
--- NOTE | 2021-06-13 09:35 | Surgery Progress Note ---
Date of Service June 13, 2021 Assessment & Plan (1) Bile leak: (2) Hx laparoscopic cholecystectomy: Plan: [id number] woman 10 days status post lap mariah with rim-enhancing fluid collection in the gallbladder fossa and around the pancreas. Differential diagnosis includes bile leak, developing abscess, pancreatic pseudocysts. Her labs are all normal including white blood cell count and LFTs. She has some upper abdominal pain, however not quite typical for bile leak or abscess. HIDA scan is unobtainable this weekend. We will await for gastroenterology recommendations for possible ERCP. I will continue to follow. Admission and Anticipated Discharge Date Admission Date: June 12, 2021 Subjective Pain slightly better today, no nausea. She feels hungry. Denies chills or sweats. Physical Exam Constitutional: WD/WN, vitals as above Eyes: PERRL, conjunctivae normal, anicteric sclerae Neck: trachea midline, no thyromegaly Gastrointestinal (Abdomen): Inspection/Auscultation: abdomen normal to inspection and + abdominal surgical incision (Incisions clean, dry, intact, healing well); abdomen not distended Percussion/Palpation: + abdomen tender (Tender right upper left upper quadrant) and abdomen soft; no guarding and abdomen not rigid Skin: no rashes, warm and dry Psychiatric: A+Ox3, euthymic affect Results & Data ([facility]) Vital Signs (Past 12 Hours) Vital Signs Temp Pulse Pulse Resp BP Pulse Ox 06/13/21 07:25 36.9 C 72 16 114/71 93 06/12/21 21:49 36.9 C 74 16 133/77 95
--- NOTE | 2021-06-13 11:07 | Electrocardiogram Report ---
Test Reason : Blood Pressure : / mmHG Vent. Rate : 068 BPM Atrial Rate : 068 BPM P-R Int : 160 ms QRS Dur : 078 ms QT Int : 408 ms P-R-T Axes : 074 064 072 degrees QTc Int : 433 ms Normal sinus rhythm Normal ECG When compared with ECG of 29-MAY-2021 14:44, No significant change was found Confirmed by Prabhu Trevino ([id number]) on 06/13/2021 11:07:13 AM Referred By: REFERRED SELF Confirmed By:German Trevino
--- NOTE | 2021-06-13 12:07 | Gastrointestinal Consultation ---
Date of Consultation June 13, 2021 Assessment & Plan (1) Abnormal CT scan: (2) Epigastric abdominal pain: unlikely to be a bile leak, would favor peripancreatic fluid collections vs. pseudocysts; bilirubin normal and VSS which go against a bile leak. Recs: keep NPO IVFs, supportive care start empiric IV abx (zosyn) now will continue to monitor her clinically and follow with you Thank you for allowing me to participate in the care of this patient History of Present Illness Attending Physician: Armando Wilkes DO History of Present Illness 61 yo female with hx DVT, gallstone pancreatitis s/p lap CCY here with epigastric abdominal pains and bloating. She notes pains come on when she eats, and has had nausea as well since her discharge. CT A/P with contrast shows multiple collections anterior to pancreas and in gallbladder fossa. LFTs normal, WBC normal, VSS. currently NPO and she notes pain is improved since she is not eating. labs reviewed. Allergies Allergy/AdvReac Type Severity Reaction Status Date / Time No Known Allergies Allergy Unverified 06/12/21 15:44 Home Medications Medication Instructions Recorded Confirmed Type apixaban 5 mg tablet (Eliquis) 5 mg PO BID 05/29/21 06/12/21 History ascorbic acid (vitamin C) 500 mg 0 mg PO QAM 05/29/21 06/12/21 History tablet (Vitamin C) cholecalciferol (vitamin D3) 25 0 mcg PO QAM 05/29/21 06/12/21 History mcg (1,000 unit) tablet (Vitamin D3) zinc 50 mg tablet 0 mg PO QAM 05/29/21 06/12/21 History acetaminophen 325 mg capsule 650 mg PO Q6H PRN #30 cap 06/02/21 06/12/21 Rx docusate sodium 100 mg capsule 100 mg PO BID #60 cap 06/02/21 06/12/21 Rx Patient History Medical History DVT (deep venous thrombosis) Surgical History Hx laparoscopic cholecystectomy (05/30/21) Laparoscopic Cholecystectomy with cholangiogram Dr. Stokes 05/30/21 Social History Smoking Status: Current every day smoker Tobacco Type: Cigarettes Cigarettes Per Day: 15; Hx Alcohol Use: No Hx Substance Use: No Preferred Language: Georgian Communication Ability: Effective Grain Trader Required: No Beliefs That Will Affect Care: None marital status: 2 Current Living Situation: Spouse Feels Safe at Home: Yes Assistive Devices: None Review of Systems Constitutional: no fever, no chills and no weight loss Eyes: as per Subjective / HPI Ear, Nose, Mouth, Throat: as per Subjective / HPI Respiratory: no dyspnea and no dyspnea on exertion Cardiovascular: no chest pain and no palpitations Gastrointestinal: as per Subjective / HPI Musculoskeletal: no joint pain and no swelling Integumentary: no rash and no lesions Neurologic: no numbness and no paresthesia Psychiatric: no depression and no anxiety Endocrine: no fatigue Hematologic / Lymphatic: no easy bleeding and no easy bruising Physical Exam Constitutional: WD/WN, vitals as above Eyes: EOM intact bilaterally Neck: normal visual inspection Respiratory: normal respiratory effort, lungs clear to auscultation Cardiovascular: RRR, no murmur, no edema Gastrointestinal (Abdomen): Inspection/Auscultation: abdomen normal to inspection; abdomen not distended Percussion/Palpation: + abdomen tender (mild diffuse ) and abdomen soft; no hepatosplenomegaly Musculoskeletal: Extremities: no cyanosis Gait: normal gait Skin: no rashes, warm and dry Neurologic: moves all extremities Psychiatric: A+Ox3, euthymic affect Results & Data ([facility]) Vital Signs (Past 12 Hours) Vital Signs Temp Pulse Resp BP Pulse Ox 06/13/21 07:25 36.9 C 72 16 114/71 93 PG Care Time/CCT Total # of Minutes Spent Total Time Spent with Patient: Total time spent is greater than 50% in coordination of care (as documented) at patient's floor/unit and/or counseling patient: Coding Level of Care Code 74661 Inpt Consult Level [address] scan R93.89 Epigastric abdominal pain R10.13
[2021-06-13] MEDS: NSS + 20MEQ KCL 20 MEQ/1,000 ML BAG IV SCH (16:37)
[2021-06-13] MEDS: ONDANSETRON INJ 2 MG/ML 2 ML VIAL IV SCH ×2 (16:41→21:30)
[2021-06-13] MEDS: FAMOTIDINE 20 MG in SYRINGE 3 ML IV SCH ×2 (16:46→21:36)
[2021-06-13] MEDS: SUCRALFATE 1 GM/10 ML UDC PO SCH ×2 (16:46→21:29)
--- NOTE | 2021-06-13 18:32 | Billing Data ---
Date of Service June 13, 2021 Coding Level of Care Code 40105 Subseq Hosp Care Lvl 3
[2021-06-13] MEDS: PANTOprazole 40 MG in SYRINGE 0 ML IV SCH (21:29)
[2021-06-13] MEDS ORDERED: ONDANSETRON INJ 2 MG/ML 2 ML VIAL IV PRN (21:48)
[2021-06-14] MEDS ORDERED: Nursing to Pharmacy Communication SCH (03:15)
[2021-06-14] MEDS: NSS + 20MEQ KCL 20 MEQ/1,000 ML BAG IV SCH (04:08)
[2021-06-14] MEDS: ONDANSETRON INJ 2 MG/ML 2 ML VIAL IV SCH ×2 (04:09→11:26)
[2021-06-14] MEDS: PANTOprazole 40 MG in SYRINGE 0 ML IV SCH (06:55)
[2021-06-14] MEDS: SUCRALFATE 1 GM/10 ML UDC PO SCH ×2 (06:55→11:29)
[2021-06-14] MEDS: FAMOTIDINE 20 MG in SYRINGE 3 ML IV SCH (06:57)
[2021-06-14 07:52] LABS: Basophils # (auto) 0.01 K/uL (0-0.2); Basophils % (auto) 0.1 %; Eosinophils # (auto) 0.13 K/uL (0-0.5); Eosinophils % (auto) 1.6 %; Hematocrit (blood only) 38.2 % (37-47); Hemoglobin 12.7 g/dL (12.0-16.0); Immature Granulocytes # (auto) 0.02 K/uL (0.00-0.02); Immature Granulocytes % (auto) 0.3 %; Lymphocytes # (auto) 1.53 K/uL (1.2-3.4); Lymphocytes % (auto) 19.4 %; Mean Corpuscular Hemoglobin 30.8 pg (25-34); Mean Corpuscular Hgb Conc 33.2 g/dL (32-36); Mean Corpuscular Volume 92.7 fL (80-100); Mean Platelet Volume 9.5 fL (7.4-10.4); Monocytes # (auto) 0.57 K/uL (0.11-0.59); Monocytes % (auto) 7.2 %; Neutrophils # (auto) 5.63 K/uL (1.4-6.5); Neutrophils % (auto) 71.4 %; Platelet Count 594 K/uL (130-400); RDW Coefficient of Variation 13.4 % (11.5-14.5); RDW Standard Deviation 45.7 fL (36.4-46.3); Red Blood Count 4.12 M/uL (4.2-5.4); White Blood Count 7.89 K/uL (4.8-10.8)
--- NOTE | 2021-06-14 08:03 | Hospitalist Progress Note ---
Date of Service June 14, 2021 Assessment & Plan (1) Bile leak: Plan: Beverly Rodriguez is a 61-year-old female with history ofileus, DVT, pancreatitis, and cholelithiasis with a recent admission to [facility] from [facility]/ for acute pancreatitis 2/2 Coledocolithiasis status post lap cholecystectomy. Presented with abdominal pain, bloating, persistent nausea. Bile leak: Abdominal pain 2/2? Postop bile leak ddx includes post op abscess Status post laparoscopic cholecystectomy 05/30/2021 for cholecystitis/choledocholithiasis/pancreatitis Lipase 193 Troponin negative Bilirubin normal, AST normal, ALT normal, alkaline phosphatase normal CTabdomen:No active pancreatic inflammatory changes are definitely seen. Status post recent cholecystectomy. Multiple rim-enhancing fluid collections, most prominent anterior to the pancreas and in the gallbladder fossa. These may represent pseudocysts, however in the setting of recent cholecystectomy, abscess and/or biliary leak cannot be excluded. Diverticulosis without diverticulitis. Pain control with acetaminophen 500 mg every 4 hours scheduled Breakthrough pain control with hydromorphone 0.25-0.5 mg every 4 hours scaled NSS plus KCl 20 M EQ 80 cc/h while NPO Nausea control with Zofran every 6 hours IV as needed, EKG 05/29/2021 with normal QT Follow clinically Continue empiric Zosyn Surgery consult: - HIDA scan is unobtainable this weekend. We will await for gastroenterology recommendations for possible ERCP. GI consulted for possible ERCP Hx laparoscopic cholecystectomy: - see above DVT (deep venous thrombosis): History of DVT DVT October 2020, near completed course Hold pending surgical eval DVT PPx: On Eliquis prior to admission, held pending surgical evaluation Diet: N.p.o. Decision: Medical/surgical CODE STATUS: Full code (2) Hx laparoscopic cholecystectomy: (3) DVT (deep venous thrombosis): Admission and Anticipated Discharge Date Admission Date: June 12, 2021 Review of Systems Review of Systems: per subjective Physical Exam Physical Exam: GENERAL: A&Ox3. NAD. CHEST/LUNGS: CTAB A/P. No crackles, wheezes, rales, rhonchi. HEART: RRR. No m/g/r. ABDOMEN: Mildly TTP at RUQ, mild guarding. Nondistended, soft. BS+ x4. SKIN: Warm and dry. No rashes or lesions. PSYCHIATRIC: Euthymic affect, no SI, no pressured speech, no hallucinations NEUROLOGIC: No FND. CN II-XII grossly intact.
[2021-06-14 08:13] LABS: Albumin Level 2.4 gm/dl (3.4-5.0); BUN Creatinine Ratio 8.4 (10-20); C Reactive Protein 1.69 mg/dl (0-0.29); Creatinine Clr Calc Pharmacy 69.8 ml/min; Est GFR (African American) 91.6 ml/min; Potassium 4.1 mmol/L (3.5-5.1)
[2021-06-14 08:15] LABS: Albumin Globulin Ratio 0.6 (0.9-2); Bilirubin,Total 0.3 mg/dl (0.2-1); Globulin 4.1 gm/dl (2.5-4.0); Total Protein 6.5 gm/dl (6.4-8.2)
--- NOTE | 2021-06-14 11:40 | Gastroenterology Progress Note ---
Date of Service June 14, 2021 Assessment & Plan (1) Abnormal CT scan: (2) Epigastric abdominal pain: Plan: clinically improving, consistent with a peripancreatic fluid collection or pseudocyst Recs: --advance diet as tolerated --supportive care --can consider a HIDA scan to further evaluate if she does not improve Admission and Anticipated Discharge Date Admission Date: June 12, 2021 Subjective no events overnight, VSS. tolerating liquid diet now, pain is improved, just some mild discomfort now between meals. labs reviewed and normal. Review of Systems Constitutional: no fever and no chills Respiratory: no cough, no dyspnea and no dyspnea on exertion Cardiovascular: no chest pain and no dyspnea Gastrointestinal: as per Subjective / HPI Psychiatric: no depression and no anxiety Physical Exam Constitutional: WD/WN, vitals as above Respiratory: normal respiratory effort, lungs clear to auscultation Cardiovascular: RRR, no murmur, no edema Gastrointestinal (Abdomen): normal bowel sounds, soft, nontender, no hepatosplenomegaly Musculoskeletal: no lower extremity edema Psychiatric: A+Ox3, euthymic affect Results & Data Results & Data ([facility]) Vital Signs (Past 12 Hours) Vital Signs Temp Pulse Resp BP Pulse Ox 06/14/21 08:15 36.6 C 89 16 142/86 H 97 PG Care Time/CCT Total # of Minutes Spent Total Time Spent with Patient: Total time spent is greater than 50% in coordination of care (as documented) at patient's floor/unit and/or counseling patient: Coding Level of Care Code 89870 Subseq Hosp Care Lvl [address] scan R93.89 Epigastric abdominal pain R10.13
[2021-06-14] MEDS ORDERED: ONDANSETRON INJ 2 MG/ML 2 ML VIAL IV PRN (14:20)
[2021-06-14 14:49] VITALS: TEMP 98.1; O2SAT 99
[2021-06-14 14:56] VITALS: BP 114/71; PULSE 74
--- NOTE | 2021-06-14 14:57 | Discharge Summary ---
Date of Service June 14, 2021 Admission HPI Per Admitting Provider Beverly Rodriguez is a 61-year-old female with a past medical history of ileus, DVT, pancreatitis, and cholelithiasis with a recent admission to [facility] from 110/ for acute pancreatitis 2/2 Coledocolithiasis status post lap cholecystectomy. She presented to the emergency room with continued epigastric abdominal pain and bloating feeling poorly since discharge at that time. She reports she is unable to eat, has had persistent nausea, increasing abdominal pain with meals since discharge. Seen at the bedside with her katiee. Reports a few weeks ago went ot the ER in [facility] for pain the back and was found to have a hiatal hernia and to followup with gastroenterology. She reports her pain worsened and she developed nausea for one day, then was OK until the following Tuesday when she felt ill again and presented to [facility]. She was found at that time to have gallstones and pancreatitis and was addmited and had a lap mariah. After that had regular healing soreness, but then her pain persisted. OVer the next week could not tolerate much food at all, and no matter what she tried she had increased pain in her stomach and mid/right side which would last for hours after trying ot eat. Rarely pain would radiate to R shoulder or belly button. Was trying ot eat and keep up strenght, 'but I'd pay for it anytime I ate.' 2x loose BMs, 1x normal BM in the last week. Water with some fine grader brown, and then becaume fine grader in color brown/weller in color. Hasn't gone in last 2-3 days. NO vomiting, +nausea with meals. No fevers/chills/sweats, but is generally cold all the time -Chest pain, -chest pressure, - shortness of breath Ibuprofen helps the pain a little bit. Hx DVT in December 2020 on eliquis, no f/u scan of legs. Last took last evening. Medical History: Reviewed Medications: Reviewed Surgical History: Reviewed Allergies: Reviewed Social History:Former smoker 1ppd x40 years, quit and hasn't smoked since last admission. No alcohol, no med marijuana, no rec drug use. Code Status: Full Code Principal Diagnosis Pancreatic pseudocysts Discharge Exam General: A&Ox3. NAD. Cooperative. HEENT: Atraumatic, normocephalic. Pulm: CTAB A&P. -wheezes, -rales, -rhonchi. Symmetrical chest rise. No increase work of breathing. No respiratory distress. Cardiac: RRR, -mrg. Radial pulses intact and symmetrical. Abdominal: Surgical incisions intact, well healing without discharge. Nontender, no rebound, soft. BS present. Ext: Warm, dry. No leg swelling or asymmetry. Discharge Data Allergies Allergy/AdvReac Type Severity Reaction Status Date / Time No Known Allergies Allergy Unverified 06/12/21 15:44 Consultations 06/12/21 18:11 ED Decision to Admit Stat 06/12/21 21:01 Consult Gastroenterology Routine Consult General Surgery Routine Ordered Studies 06/12/21 15:57 CT abd pelvis IV con only Stat Hospital Course (1) Bile leak: Beverly Rodriguez is a 61-year-old female with history ofileus, DVT, pancreatitis, and cholelithiasis with a recent admission to [facility] from [facility]/ for acute pancreatitis 2/2 Coledocolithiasis status post lap cholecystectomy. Presented with abdominal pain, bloating, persistent nausea. Peripancreatic pseudocysts: Status post laparoscopic cholecystectomy 05/30/2021 for cholecystitis/choledocholithiasis/pancreatitis Bilirubin normal, AST normal, ALT normal, alkaline phosphatase normal CTabdomen:No active pancreatic inflammatory changes are definitely seen. Status post recent cholecystectomy. Multiple rim-enhancing fluid collections, most prominent anterior to the pancreas and in the gallbladder fossa. These may represent pseudocysts, however in the setting of recent cholecystectomy, abscess and/or biliary leak cannot be excluded. Diverticulosis without diverticulitis. NSS plus KCl 20 M EQ 80 cc/h while NPO Nausea control with Zofran every 6 hours IV as needed, EKG 05/29/2021 with normal QT Surgery consult: - HIDA scan is unobtainable this weekend. We will await for gastroenterology recommendations for possible ERCP. GI consulted -- initial rec for antibiotic empirically, however upon our reevaluation patient remained hemodynamically stabl without clear signs of infection - We decided to monitor closely without abx as her symptoms seemed to possibly be due to gastritis/pain from initial adjustment to pseudocysts - Started on famotidine, protonix, and sucralfate - Cautiously advanced her to liquid diet, which she tolerated well - On day of DC patient feeling well, was able to tolerate bland food - As she remained w/o sings of infection, GI agreed consistent with pseudocysts - HIDA scan considered per GI recs but could not be completed over weekend -- patient preferring to discuss as outpatient, which was reasonable with a stable clinical picture - NM with plan to continue all three meds for next week -- stop famotidine in 1 week, Carafate in 2 weeks, and Protonix to once daily in about 3 weeks and stop about a month or so after if possible Hx laparoscopic cholecystectomy: - see above DVT (deep venous thrombosis): History of DVT DVT October 2020, near completed course [facility] [place] Dispo: Home, self care; GI, surgery, PCP f/u CODE STATUS: Full code (2) Hx laparoscopic cholecystectomy: (3) DVT (deep venous thrombosis): (4) Pancreatic pseudocyst: Total Time Total Time Spent Total Time Spent (In Minutes): <30 Discharge Plan Discharge Items Patient Disposition: Home - Self-Care Reason For Visit: POST MARIAH PAIN, ?BILE LEAK Discharge Diagnosis: Pancreatic pseudocysts Condition on Discharge: Good Activity: Per Instructions section Non-emergency contact: Primary Care Provider and Conceptor Call non-emergency contact if: you have any medication questions Follow-up/Referrals: Justus Wade MD [Resident] - (PLEASE CALL YOUR PRIMARY CARE PROVIDER TO SCHEDULE A FOLLOW-UP DISCHARGE APPOINTMENT FOR 7-10 DAYS.) Diet: Regular Addtl Attending Provider Instructions: You were admitted to [facility] due to recurrent abdominal pain in the setting of recent cholecystectomy. Your abdominal CT scan was significant for multiple pockets of fluid around the area where you had your surgery. Since it was impossible to rule out abscess or bile leak, you were admitted for monitoring. Your symptoms seemed to also fit with gastric irritation in the setting of recent stress from surgery. As such, we treated you with Pantoprazole, famotidine (Pepcid), and Carafate. Your diet was cautiously restarted with liquid diet and you tolerated this well. Thus, we advanced your diet to regular, which you tolerated as well. You will be discharged with a course of these medications. * For the next week you will use all three of the medications * The week after, we will stop the Pepcid * The week after that, you should stop the Carafate * One week after that, scale down the Protonix to once daily * About a month after you may try to stop the Protonix Please continue to advance your diet as tolerated. We recommend initially avoiding heavy, fatty foods -- try to maintain a bland diet initially until you feel ready to start introducing regular foods. We recommend that you follow with your PCP, your career based intervention coordinator, and your surgeon for discussion of your hospitalization. If you develop concerning signs/symptoms like fever, chills, nausea, vomiting, worsening abdominal pain, or others, please return to the hospital for further evaluation. Pending Studies at Discharge: No Stand-Alone Forms: My [facility], Smoking Cessation Medications and DC Order Prescriptions: New famotidine [Pepcid] 20 mg tablet 20 mg PO BID Qty: 14 RF: 0 pantoprazole [Protonix] 40 mg tablet,delayed release (DR/EC) 40 mg PO BID Qty: 90 RF: 0 sucralfate 100 mg/mL suspension 1 g PO TID 21 Days Qty: 630 RF: 0 Continued ascorbic acid (vitamin C) [Vitamin C] 500 mg Tablet 0 mg PO QAM RF: 0 zinc 50 mg Tablet 0 mg PO QAM RF: 0 cholecalciferol (vitamin D3) [Vitamin D3] 25 mcg (1,000 unit) Tablet 0 mcg PO QAM RF: 0 Eliquis 5 mg tablet 5 mg PO BID RF: 0 docusate sodium 100 mg Capsule 100 mg PO BID Qty: 60 RF: 0 acetaminophen 325 mg capsule 650 mg PO Q6H PRN (Reason: pain) Qty: 30 RF: 0 Discharge Orders: Discharge Order (Routine); Ordered 06/14/21 Ordered By: Justus Manriquez/Other Patient Handouts: Abdominal Pain Admission Data Admit Date/Time: 06/12/21 18:47 Attending Provider: Armando Wilkes Admit Provider: Corbin Briscoe Primary Care Provider: PCP,NO Other Providers: Corbin Briscoe ; José Antonio Zee ; Robin Tang Other Interventions: Discharge Summary Assessment (RN) Last Done: 06/14/21 14:55 Supervising Physician Co-Signing Physician Notes I personally examined the patient and verified all valentin points of history and exam, discussed case, and agree with decision making with Dr Thompson. stomach pain feeling better, eating well - still with some belching and burping but overall much better. no stomach pain. Vitals noted, in general she is awake and alert pleasant no distress. HEENT normocephalic atraumatic mucous membranes moist. Breathing is unlabored no accessory muscle use good effort. Abdomen is soft nd nt no masses/organomegaly/guarding/rebound/rigidity. Skin shows no rashes, no pallor or icterus. Abdominal pain/nausea vomitingshe presented mostly with inability to tolerate foodand while she has the nondescript fluid collections on CT, her history and exam are really quite consistent with something along the lines of a stress- induced gastritis, early peptic ulcer disease. Improved nicely on aggressive mucosal regimen of twice daily PPI, twice daily H2, Carafatenow doing well/stable for home. Will discharge home on this regimen, de-escalating about once a week. If she reaches a point that we can de-escalate no further without return of symptoms, or if she cannot stop the PPI altogether within a few months at the most, then would consider EGD Abdominal fluid collectionsno fever no white count her CRP is low and reassuringall making an abscess really unlikely, bilirubin alk phos and specialty assessments seem to make a bile leak far less likelyso I suspect whether it is a pseudocyst, or just seroma, it is probably fluid collection that is not going to require interventionpossibly could be part of her pain just simply due to disruption of the surrounding architecture, but if that's the case it's likely to improve as her body adapts. Yesterday discussed with patient that antibiotics were not started yet, and given that I'm not seeing a clear and necessary indication, initiating antibiotics at this point would almost certainly commit her to a full course, given that we wouldn't really have a clear point at which to stop. To that end, I proposed watchful waiting, serial exams serial labs, and initiating antibiotics should it become clear that she needs themshe and her daughter both endorse this approachand understand that there is a small but real chance that an infection could ensue with some worsening, but it would be very unlikely to be a massive rapid worsening. With this approach, she has shown nothing but improvement, CRP is continuing to go down, exam has improvednothing specific seems to need to be done with these fluid collections other than watchful waiting, serial exams, serial history. Stable for home, close outpt f/u Resident Activity Tracking Resident Involvement: Resident Care Provided Care Provided: Adult Hospital Medicine
--- NOTE | 2021-06-14 15:04 | Surgery Progress Note ---
Date of Service June 14, 2021 Assessment & Plan (1) Bile leak: (2) Hx laparoscopic cholecystectomy: Plan: [id number] woman 10 days status post lap mariah with rim-enhancing fluid collection in the gallbladder fossa and around the pancreas. Differential diagnosis includes bile leak, developing abscess, pancreatic pseudocysts. Her labs are all normal including white blood cell count and LFTs. She has some upper abdominal pain, however not quite typical for bile leak or abscess. GI agrees that this is atypical for bile leak, given the lack of pain and normal labs. They will hold off on ERCP for now. We will advance her diet as tolerated, see how she does overnight into tomorrow. If she continues to have symptoms, we will proceed with HIDA scan on Tuesday. Admission and Anticipated Discharge Date Admission Date: June 12, 2021 Subjective She states that she is feeling much better today. She has been able to tolerate some liquid diet. She denies nausea or vomiting. She denies bloating. Physical Exam Constitutional: WD/WN, vitals as above Eyes: PERRL, conjunctivae normal, anicteric sclerae Neck: trachea midline, no thyromegaly Gastrointestinal (Abdomen): Inspection/Auscultation: abdomen normal to inspection and + abdominal surgical incision (Incisions clean, dry, intact, healing well); abdomen not distended Percussion/Palpation: abdomen soft; abdomen nontender, no guarding and abdomen not rigid Skin: no rashes, warm and dry Psychiatric: A+Ox3, euthymic affect Results & Data ([facility]) Vital Signs (Past 12 Hours) Vital Signs Temp Pulse Pulse Resp BP BP Pulse Ox 06/14/21 14:55 36.7 C 74 69 16 114/71 145/74 H 99 06/14/21 14:49 36.7 C 69 16 145/74 H 99 06/14/21 08:15 36.6 C 89 16 142/86 H 97 Laboratory Results 06/14/21 06/14/21 Range/Units 07:41 07:41 WBC 7.89 (4.8-10.8) K/uL RBC 4.12 L (4.2-5.4) M/uL Hgb 12.7 (12.0-16.0) g/dL Hct 38.2 (37-47) % MCV 92.7 (80-100) fL MCH 30.8 (25-34) pg MCHC 33.2 (32-36) g/dL RDW Std Deviation 45.7 (36.4-46.3) fL RDW Coeff of Phillip 13.4 (11.5-14.5) % Plt Count 594 H (130-400) K/uL MPV 9.5 (7.4-10.4) fL Immature Gran % (Auto) 0.3 % Neut % (Auto) 71.4 % Lymph % (Auto) 19.4 % [place] % (Auto) 7.2 % Eos % (Auto) 1.6 % Baso % (Auto) 0.1 % Neut # (Auto) 5.63 (1.4-6.5) K/uL Lymph # (Auto) 1.53 (1.2-3.4) K/uL [place] # (Auto) 0.57 (0.11-0.59) K/uL Eos # (Auto) 0.13 (0-0.5) K/uL Baso # (Auto) 0.01 (0-0.2) K/uL Immature Gran # (Auto) 0.02 (0.00-0.02) K/uL Sodium 139 (136-145) mmol/L Potassium 4.1 (3.5-5.1) mmol/L Chloride 108 H (98-107) mmol/L Carbon Dioxide 27 (21-32) mmol/L Anion Gap 5.0 (3-11) BUN 7 (7-18) mg/dl Creatinine 0.80 (0.6-1.2) mg/dl Est Cr Clr Drug Dosing 69.8 ml/min Est GFR ( Amer) 91.6 ml/min Est GFR (Non-Af Amer) 79.0 ml/min BUN/Creatinine Ratio 8.4 L (10-20) Glucose 116 H (70-99) mg/dl Calcium 9.0 (8.5-10.1) mg/dl Total Bilirubin 0.3 (0.2-1) mg/dl AST 21 (15-37) U/L ALT 13 (12-78) U/L Alkaline Phosphatase 97 (45-117) U/L C-Reactive Protein 1.69 H (0-0.29) mg/dl Total Protein 6.5 (6.4-8.2) gm/dl Albumin 2.4 L (3.4-5.0) gm/dl Globulin 4.1 H (2.5-4.0) gm/dl Albumin/Globulin Ratio 0.6 L (0.9-2)
--- NOTE | 2021-06-14 15:24 | Billing Data ---
Date of Service June 14, 2021 Coding Level of Care Code D/C DAY MANAGEMENT <30 MINS
== END 2021-06-14 15:16 | disposition home or self-care (01) | DRG 440 ==
LOC: ED 12:01 → SUATTDRO 18:47 → 3N 18:47 → 2N 06-13 23:18